=== PATIENT | female | born 1935 | race African-American/Black ===

== ENCOUNTER 2018-12-05 11:42 | Inpatient (IN) | payer OTHER ==
[~2018-12-05] VITALS: Ht 149.9 cm; Wt 103.4 kg
[2018-12-05 11:46] VITALS: BP 174/79
[2018-12-05] MEDS ORDERED: SENEXON-S TABL1 EACH PO (12:00)
[2018-12-05] MEDS ORDERED: ADULT WAL-100 MG/5 M PO (12:00)
[2018-12-05] MEDS ORDERED: BACTRIM DS TAB1 EACH PO (12:00)
[2018-12-05] MEDS ORDERED: NYAMYC15 GM TOP (12:01)
[2018-12-05] MEDS ORDERED: LOPERAMIDE 2 MG2 M1 PO (12:01)
[2018-12-05] MEDS ORDERED: ONDANSETRON HCL4 M2 PO (12:01)
[2018-12-05] MEDS ORDERED: AMLODIPINE BESY10 MG PO (12:01)
[2018-12-05] MEDS ORDERED: LOPRESSOR50 PO (12:02)
[2018-12-05] MEDS ORDERED: MIRALAX17 GM PO (12:02)
[2018-12-05] MEDS ORDERED: LEXAPRO 10 MG T10 M2 PO (12:02)
[2018-12-05] MEDS ORDERED: MAXZIDE-25 MG1 EACH PO (12:03)
[2018-12-05] MEDS ORDERED: FEOSOL325 M1 PO (12:03)
[2018-12-05] MEDS ORDERED: POTASSIUM20 PO (12:03)
[2018-12-05] MEDS ORDERED: XARELTO15 MG PO (12:04)
[2018-12-05] MEDS ORDERED: VITAMIN D1000 UNI1 PO (12:04)
[2018-12-05] MEDS ORDERED: ARTIFICIAL TEA1 EACH OPHTHALMIC (12:04)
[2018-12-05] MEDS ORDERED: CAL-GEST200 MG PO (12:05)
[2018-12-05] MEDS ORDERED: GABAPENTIN 100100 MG PO (12:05)
[2018-12-05] MEDS ORDERED: APAP650 PO (12:06)
[2018-12-05 12:11] LABS: URINE BILIRUBIN NEGATIVE (Negative); URINE BLOOD TRACE (Negative); URINE CLARITY CLEAR; URINE COLOR YELLOW; URINE GLUCOSE-RANDOM* NEGATIVE (Negative); URINE KETONES TRACE (Negative); URINE LEUKOCYTES-REFLEX NEGATIVE (Negative); URINE NITRITE-REFLEX NEGATIVE (Negative); URINE PROTEIN (DIPSTICK) 1+ (Negative); URINE SPECIFIC GRAVITY 1.025 (1.005-1.035); URINE UROBILINOGEN 0.2 E.U./dl (0.2-1.0)
[2018-12-05 12:25] LABS: FINE GRANULAR CASTS 0-3 Few /LPF (None Seen); SQUAMOUS 4-10 Moderate /LPF (0-3)
[2018-12-05 12:26] LABS: BACTERIA-REFLEX 1-9 Few /HPF (None Seen); CRYSTALS None Seen /LPF (None Seen); URINE RBC 3-10 Few /HPF (0-2); URINE WBC-REFLEX 0-5 Rare /HPF (0-5)
[2018-12-05 12:30] LABS: ABSOLUTE NEUTROPHILS 5.3 thou/uL (1.4-8.2); BASOPHILS 0.5 % (0.0-2.0); EOSINOPHILS 3.2 % (0.0-3.0); HEMATOCRIT 39.5 % (37.0-47.0); HEMOGLOBIN 13.3 gm/dL (12.0-15.0); MCH 30.1 pg (26.0-34.0); MCHC 33.7 g/dL (28.0-37.0); MCV 89.3 fL (80.0-100.0); MONOCYTES 2.5 % (1.0-8.0); PLATELET COUNT 215 thou/uL (150-400); POLYS 89.8 % (36.0-66.0); RBC 4.42 mil/uL (4.20-5.00); RDW 15.1 % (10.5-14.5); WBC 5.9 thou/uL (4.0-11.0)
[2018-12-05 12:42] LABS: ALBUMIN 3.2 g/dL (3.4-5.0); CALCIUM 7.9 mg/dL (8.5-10.1); CREATININE 1.5 mg/dL (0.6-1.0); POTASSIUM 4.6 mmol/L (3.5-5.1); TOTAL BILIRUBIN 0.3 mg/dL (<0.1-1.0); TOTAL PROTEIN 7.2 g/dL (6.4-8.2)
--- NOTE | 2018-12-05 13:54 | EKG ---
[place] [address] [facility] [place] [address] ELECTROCARDIOGRAM REPORT Name: RACHEL GARCIA Room #: [facility] Mitchell#: [id number] ������������������ Admission: 12/05/18 ������������������ Attend Phys: Discharge: ������������������ Date of : 39 Report #: [id number] ����������������������������������������������������������������� [id number] THIS REPORT FOR: //name// [facility] ED Test Date: 2018-12-05 Test Time: 12:59:20 Pat Name: RACHEL GARCIA Department: Room: Gender: F Radiotelegrapher: ION : 1935 Requested By: Stephenie Elizondo Order Number: [id number] MD: Jaguar Silva Measurements Intervals [place] Rate: 72 P: 33 MS: 176 QRS: -7 QRSD: 103 T: 31 QT: 410 QTc: 449 Interpretive Statements Sinus rhythm Consider anterior infarct No previous ECG available for comparison Electronically Signed On 12-05-2018 13:54:39 CDT by Jaguar Silva [email or web address] ��������������������������������������������� <ELECTRONICALLY SIGNED> ���������������������������������������� By: Jaguar Silva MD ��������������������������������������������� 12/05/18 1354 [id number] Jaguar Silva MD /RL
[2018-12-05 14:29] VITALS: BP 168/74
[2018-12-05 15:19] VITALS: BP 168/74
[2018-12-05 15:55] VITALS: BP 152/71
--- NOTE | 2018-12-05 17:26 | NUR ---
TO UNIT FROM E.D. BY CART AT 1530. FALL PRECAUTIONS IN PLACE; CLOSE TO NURSES' STATION; HOURLY ROUNDING. NSR PER TELE. FREQUENT CHECKS, WILL CONTINUE TO MONITOR.
--- NOTE | 2018-12-05 19:27 | NUR ---
JASEN PEPE FROM [facility] CALLED FOR UPDATE ON PATIENT ADMISSION STATUS
[2018-12-05 20:00] VITALS: BP 113/76
[2018-12-05 20:16] LABS: CALCIUM 8.2 mg/dL (8.5-10.1); CREATININE 1.5 mg/dL (0.6-1.0); POTASSIUM 5.1 mmol/L (3.5-5.1)
[2018-12-06] VITALS: BP 154/72
[2018-12-06 03:22] LABS: ABSOLUTE NEUTROPHILS 4.7 thou/uL (1.4-8.2); BASOPHILS 0.9 % (0.0-2.0); EOSINOPHILS 0.7 % (0.0-3.0); HEMATOCRIT 38.1 % (37.0-47.0); HEMOGLOBIN 12.9 gm/dL (12.0-15.0); LYMPHOCYTES 6.7 % (24.0-44.0); MCH 29.9 pg (26.0-34.0); MCHC 33.7 g/dL (28.0-37.0); MCV 88.5 fL (80.0-100.0); PLATELET COUNT 207 thou/uL (150-400); POLYS 88.7 % (36.0-66.0); RBC 4.31 mil/uL (4.20-5.00); RDW 14.8 % (10.5-14.5); WBC 5.3 thou/uL (4.0-11.0)
[2018-12-06 03:27] LABS: CALCIUM 7.6 mg/dL (8.5-10.1); CREATININE 1.4 mg/dL (0.6-1.0); POTASSIUM 4.3 mmol/L (3.5-5.1)
[2018-12-06 04:00] VITALS: BP 148/76
--- NOTE | 2018-12-06 05:21 | NUR ---
ASSUMED PT CARE AT 1900 WITH NO SIGN OF DISTRESS NOTED IN PT, BUT IS ALERT BUT CONFUSED. NO FAMILY AT BEDSIDE. ATTENDING PHYSICIAN NOTIFIED ON ORDER'S FOR PATIENT. FLUID RESUMED. ASSESSMENT COMPLETED AND CHARTED. PT IS STABLE. SCHEDULED MEDS ADMINISTERED TO PT. NO FURTHER NEEDS AT THIS TIME.
[2018-12-06 07:41] LABS: CALCIUM 7.8 mg/dL (8.5-10.1); CREATININE 1.2 mg/dL (0.6-1.0); POTASSIUM 4.4 mmol/L (3.5-5.1)
[2018-12-06 07:46] VITALS: BP 146/92
--- NOTE | 2018-12-06 09:49 | NUR ---
CONSULTED TO PLACE A MIDLINE FOR A PATIENT NEEDING ACCESS, STAFF UNABLE TO OBTAIN PIV. ORDER NOTED AND VERBAL CONSENT FROM THE PATIENT OBTAINED AFTER THE PROCEDURE WELL RISKS AND BENIFITS WERE DISCUSSED WITH THE PATIENT. THE RIGHT UPPER ARM CEPHALIC WAS WIDLEY PATENT. A #4F POWER MIDLINE WAS PLACED PER HOSPITAL POLICY. LINE WAS TRIMMED TO 12CM AND ADVANCED WITHOUT DIFFICULTY. LINE SECURED AND RELEASED FOR USE
[2018-12-06 12:37] VITALS: BP 134/69
[2018-12-06 15:44] VITALS: BP 123/67
[2018-12-06 20:00] VITALS: BP 121/71
--- NOTE | 2018-12-06 20:29 | NUR ---
ASSUMED CARE AT SHIFT, ALERT TO SELF AND FAMILY. SR ON THE MONITOR AND VSS.DR ROBERTO NOTIFIED ABOUT SODIUM CRITICAL LEVEL. PATIENT FAMILY UPDATED. Q2 POSITIONED AND NEEDED FOR COMFORT. PATIENT ON FLUID RESTRICTION. AND WILL CONTINUE WITH POC.
--- NOTE | 2018-12-07 03:40 | NUR ---
patient is aox1 confused and forgetful. patient seems to be answering to internal stimuli. patient needs total assistance with adl, bed mobility, tansfer and toileting. patient incontient this shift pericare and barrier cream applied as needed. patient had greenish loose bowel movement this shift x2. turned q 2 hours. patient was awake most of the time this shift. patient in bed asleep at this time breathing regular and unlaboured.
[2018-12-07 04:00] VITALS: BP 120/90
[2018-12-07 05:14] LABS: ABSOLUTE NEUTROPHILS 4.4 thou/uL (1.4-8.2); BASOPHILS 0.3 % (0.0-2.0); EOSINOPHILS 1.8 % (0.0-3.0); HEMATOCRIT 34.8 % (37.0-47.0); HEMOGLOBIN 11.8 gm/dL (12.0-15.0); LYMPHOCYTES 10.4 % (24.0-44.0); MCH 29.9 pg (26.0-34.0); MCHC 33.9 g/dL (28.0-37.0); MCV 88.3 fL (80.0-100.0); MONOCYTES 6.9 % (1.0-8.0); PLATELET COUNT 192 thou/uL (150-400); POLYS 80.6 % (36.0-66.0); RBC 3.94 mil/uL (4.20-5.00); RDW 15.1 % (10.5-14.5); WBC 5.5 thou/uL (4.0-11.0)
[2018-12-07 05:32] LABS: CALCIUM 7.1 mg/dL (8.5-10.1); POTASSIUM 4.3 mmol/L (3.5-5.1)
[2018-12-07 08:41] VITALS: BP 141/109
--- NOTE | 2018-12-07 09:57 | NUR ---
INTSTRUCTED BY DR. RIOJAS THAT IT IS OK TO GIVE HYPERTONIC SOLUTION THROUGH MIDLINE ACCESS.
--- NOTE | 2018-12-07 10:48 | HC ---
[facility] [place] [address] CONSULTATION Name: RACHEL GARCIA Room #: 204-P ADM IN M.R.#: [id number] Admission: 12/05/18 ������������������ Attend Phys: Zulay Shepard MD Discharge: ������������������ Date of : 37 Report #: [id number] THIS REPORT FOR: //name// CC: FAM unknown Zulay Shepard DATE OF SERVICE: 12/06/2018 REASON FOR CONSULTATION: Hyponatremia. HISTORY OF PRESENT ILLNESS: This is an 83-year-old female who lives in a [facility]. She apparently has some chronic dementia. Apparently, she had a low-grade fever yesterday and came to the Emergency Room. Upon her evaluation in the Emergency Room, she was found to be somewhat hyponatremic with serum sodium of 118. We are asked to see her for help with the hyponatremia. The patient is awake, but really not able to answer any meaningful questions. She is disoriented, consistent with a chronic dementia. She was put on some IV normal saline overnight in the Emergency Room and that was continued when she got admitted to the floor. By this morning, her serum sodium dropped to 116. We did have a random urine sodium of 77, random urine creatinine of 89.5 on admission. Urine osmolality is pending. Her urinalysis showed specific gravity of 1.025. PAST MEDICAL HISTORY: Obtained from her records include history of hypertension, type 2 diabetes, chronic dementia, mild anemia. Also, some paroxysmal atrial fibrillation. MEDICATIONS: Include amlodipine 10 mg daily, metoprolol 50 mg b.i.d., Lexapro 10 mg daily, Xarelto 15 mg daily, calcium 500 mg t.i.d., gabapentin 200 mg t.i.d., several p.r.n. medications. ALLERGIES: INCLUDE CANDESARTAN, CAPTOPRIL, HYDROCHLOROTHIAZIDE, NASONEX, PROPOXYPHENE, AND FELDENE. FAMILY HISTORY: Unavailable. SOCIAL HISTORY: The patient is single, lives in a local care center. She is disabled. Apparently, there is a granddaughter in [place] who is involved with her care. REVIEW OF SYSTEMS: Unavailable from the patient. PHYSICAL EXAMINATION: GENERAL: An 83-year-old female, awake, does respond. She is fully disoriented and confused, no apparent distress. VITAL SIGNS: Blood pressure 146/92, heart rate 86, temperature 97.5, oxygen [facility] [address] [place] [address] CONSULTATION Name: RACHEL GARCIA Room #: 204-P [facility] IN M.R.#: [id number] Admission: 12/05/18 ������������������ Attend Phys: Zulay Shepard MD Discharge: ������������������ Date of : 37 Report #: [id number] saturation 95%. She has had no fever since she got here even though the fever was the reporting chief complaint. HEENT: Shows pupils are equal and reactive. Sclerae nonicteric. Oral mucosa is moist. NECK: Neck veins are not distended. Supple, no adenopathy. CHEST: Clear bilaterally. HEART: Has a regular rate and rhythm. ABDOMEN: Has active bowel sounds, is nontender. EXTREMITIES: Shows no peripheral edema. Chest x-ray is reviewed and review some large lower lobe atelectasis. LABORATORY DATA: From admission, sodium 118, potassium 4.6, chloride 85, bicarbonate 20, BUN 17, creatinine 1.5, down to 1.2 today, glucose 216, AST 150, ALT 115, calcium 7.8, total protein 7.2, albumin 3.2. White count 5.9, hemoglobin 13.3, hematocrit 39.5, platelets 215,000. Urinalysis is as described above. ASSESSMENT: 1. Hyponatremia. This is in the face of the patient who was euvolemic. Blood pressure is good. She is not dry on exam. Fractional excretion of sodium is actually high. 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 This is further supported by the fact that she received IV normal saline overnight and the serum sodium actually dropped somewhat due to her inability to excrete the free water. At this point, I will stop the IV fluids. We will put her on a very mild fluid restriction. This should start to turn around fairly promptly. 2. History of hypertension. 3. Chronic dementia. PLAN: 1. As above. We will recheck labs in the morning. 2. We will follow along the care of this patient. ��������������������������������������������� <ELECTRONICALLY SIGNED> ���������������������������������������� By: Cayetano Sharma MD ��������������������������������������������� 12/07/18 1048 1139 0450 Cayetano Sharma MD /nt
[2018-12-07 10:58] VITALS: BP 119/76
[2018-12-07 15:04] VITALS: BP 114/66
--- NOTE | 2018-12-07 16:37 | NUR ---
PT NOT WAKING UP ENOUGH TO FEED AND SWALLOW. WHEN TECH TRIED TO FEED THIS AM PT WAS POCKETING FOOD IN CHEECK. WILL CHANGE DIET TO PUREED.
--- NOTE | 2018-12-07 17:39 | NUR ---
CONTACT PT'S DAUGHTER AND GRANDAUGHTER TO GIVE UPDATE. FAMILY UPDATED ON PT'S CONDITION.
[2018-12-07 20:10] VITALS: BP 129/54
[2018-12-08 04:55] VITALS: BP 127/54
[2018-12-08 06:44] LABS: CALCIUM 7.4 mg/dL (8.5-10.1); CREATININE 1.2 mg/dL (0.6-1.0); POTASSIUM 3.4 mmol/L (3.5-5.1)
--- NOTE | 2018-12-08 07:59 | NUR ---
ASSUMED PT CARE AT 1900 WITH NO SIGN OF DISTRESS NOTED IN PT. PT IS VERY LETHARGIC. ASSESSMENT COMPLETED. SCHEDULED MEDS ADMINISTERED TO PT NEEDED. VITAL SIGNS STABLE. NO FAMILY AT BEDSIDE. PT IS CONTINUED TO BE TURNED. CONTINUE TO MONITOR. DENIES ANY FURTHER NEEDS AT THIS TIME.
[2018-12-08 08:02] VITALS: BP 132/53
--- NOTE | 2018-12-08 10:27 | NUR ---
met with patient who has confusion. Sp with nursing at [facility]. Camilo resides on second floor of [facility]. She uses a power scooter at facility and uses a sit/stand lift chair. Plan return to [facility] once stable. Confirmed plan with dtr Sarah who lives in [place]. She plans to text her dtr Irina who is also contact for patient.
[2018-12-08 11:40] VITALS: BP 121/66
--- NOTE | 2018-12-08 13:16 | NUR ---
ASSUMED CARE THIS AM, PATIENT SLEEPING BUT OPENS EYES TO VOICE. STATES HER NAME BUT GETS HER BIRTHDAY YEAR WRONG. SPEECH SLURRED AND SHEIS DIFFICULT TO UNDERSTAND AT TIMES. FOLLOWS COMMANDS. NO COMPLAINTS OF PAIN, NAUSEA OR DISCOMFORT. SB ON MONITOR. SEMI-FOWLERS IN BED, WILL TURN Q2. INCONTINENT OF URINE AND STOOL, WILL MONITOR CLOSELY. SKIN INTACT
[2018-12-08 15:27] VITALS: BP 124/61
--- NOTE | 2018-12-08 15:54 | NUR ---
FAXED CLINICAL UPDATE TO [facility] SPOKE WITH STERLING ON 2N FLOOR SHE RECEIVED UPDATE. DCP TO FOLLOW.
[2018-12-08 20:05] VITALS: BP 120/54
--- NOTE | 2018-12-09 03:58 | NUR ---
ASSUMED PT CARE AT 1900. VSS. PT WAS SLEEPY BUT AROUSABLE AND ORIENTED TO HER SELF ONLY REMAINS CONFUSED. NO COMPLAINTS OF PAIN OR DISCOMFORT. PT SLEPT WELL FOR MOST OF THE NIGHT, FREQUENT TURNS DONE, BARIER CREAM APPLIED TO BOTTOM. 1200 FLUID RESTRICTION MAINTAINED FOR THE DAY. PT TOLERATES PILLS WELL. PT IS STABLE, WILL CONTINUE TO MONITOR PER POC
[2018-12-09 04:15] VITALS: BP 115/96
[2018-12-09 05:57] LABS: ALBUMIN 2.7 g/dL (3.4-5.0); CALCIUM 7.4 mg/dL (8.5-10.1); CREATININE 1.1 mg/dL (0.6-1.0); PHOSPHORUS 2.5 mg/dL (2.5-4.9); POTASSIUM 3.6 mmol/L (3.5-5.1)
--- NOTE | 2018-12-09 10:49 | NUR ---
Nutrition: pt admitted with hyponatremia, SIADH, AMS. On fluid restriction. Renal following. Na/K+ pills. Bites only at breakfast. Will trial ensure pudding. Diet changed to pureed on 12/07 by nsg due to decreased JOSE. More alert today per nsg however pt very lethargic during RD visit. No weight hx but current BMI 44, extreme class 3 obesity. From [facility]. REC order ST eval to determine most appropriate diet consistency. If upgrade possible, perhaps this may assist intake. Follow for po improvement/tolerance to supplement.
--- NOTE | 2018-12-09 10:56 | NUR ---
REC order ST eval now that pt is more alert to determine best diet consistency as po intake is poor. RD adding ensure pudding BID.
[2018-12-09 11:35] VITALS: BP 135/74
--- NOTE | 2018-12-09 14:06 | NUR ---
[facility] SW and transportation escort visiting with [address] [facility] [address] Kapoor rounded and alerted to [facility] possible dc in am. Updated [facility]
[2018-12-09 16:00] VITALS: BP 124/61
--- NOTE | 2018-12-09 18:22 | NUR ---
ASSUMED CARE, PATIENT SLEEPING, OPENS EYES BUT REMAINS DROWSY. 0RIENTED TO NAME AND BIRTHDAY. CONFUSION SOMEWHAT IMPROVED BUT SPEECH STILL GARBLED AND HARD TO UNDERSTAND AT TIMES. VSS. CONTINUES TO BE INCONTINENT OF STOOL AND URINE. SKIN INTACT BUT ANUS AND SURROUNDING AREA EXCORIATED. PROTECTIVE SKIN CREAM APPLIED. TURNED EVERY 2 HOURS AND HEELS FLOATED. SCDS AND JIE HOSE ON.
--- NOTE | 2018-12-09 18:26 | NUR ---
SPOKE WITH DAUGHTER MIKAEL ON THE PHONE WHO CALLS FROM [place]. CONCERNED ABOUT HER MOTHERS LIPS AND WANTED A PICTURE OF THEM SENT TO HER. I EXPLAINED THAT THAT WAS NOT SOMETHING THAT WE COULD DO. CONTACTED DR. ROBERTO'S OFFICE AND LEFT A MESSAGE FOR HIM TO CALL DAUGHTER WITH PATIENT UPDATE.
[2018-12-09 19:48] VITALS: BP 131/59; BP 143/55
[2018-12-10 03:59] LABS: ALBUMIN 2.7 g/dL (3.4-5.0); CALCIUM 7.8 mg/dL (8.5-10.1); PHOSPHORUS 1.9 mg/dL (2.5-4.9); POTASSIUM 3.9 mmol/L (3.5-5.1)
--- NOTE | 2018-12-10 04:15 | NUR ---
ASSUMED PT CARE AT 1900. VSS. PT AWAKE AND ORIENTED TO SELF. SPOKE TO PT'S DAUGHTER IN [place] LAST NIGHT, SHE WANTED TO KNOW HOW SHE WAS DOING AND ENSURE THAT PT WAS BEING GROOMED. SHE ALSO SAID SHE WOULD LIKE TO SEE A PICTURE OF HER MOM TO WHICH I INFORMED HER IS A HIPPA VIOLATION. PT'S SODIUM LEVELS ARE BETTER THIS AM AT 133. POTASSIUM AND CR ARE WNL WITH BUN BEING SLIGHLY ELEVATED. PT IS STABLE, TOLERATED HER THICKENED LIQUID WITH HER MEDS LAST NIGHT. NO COMPLAINTS OF PAIN OR DISTRESS. FREQUENT TURNS BEING DONE WITH BARRIER CREAM APPLIED TO BOTTOM. PT MAY RETURN TO PRISON TODAY IF DEEMED FIT.
[2018-12-10 04:16] LABS: HEMATOCRIT 33.2 % (37.0-47.0); HEMOGLOBIN 11.2 gm/dL (12.0-15.0); MCHC 33.8 g/dL (28.0-37.0); MCV 88.8 fL (80.0-100.0); RBC 3.74 mil/uL (4.20-5.00); RDW 15.5 % (10.5-14.5); WBC 12.7 thou/uL (4.0-11.0)
[2018-12-10 04:45] VITALS: BP 123/60
[2018-12-10 08:49] VITALS: BP 141/37
[2018-12-10 11:23] LABS: URINE BILIRUBIN NEGATIVE (Negative); URINE BLOOD NEGATIVE (Negative); URINE CLARITY CLEAR; URINE COLOR YELLOW; URINE GLUCOSE-RANDOM* NEGATIVE (Negative); URINE KETONES 1+ (Negative); URINE LEUKOCYTES-REFLEX TRACE (Negative); URINE NITRITE-REFLEX NEGATIVE (Negative); URINE PROTEIN (DIPSTICK) 1+ (Negative); URINE UROBILINOGEN 0.2 E.U./dl (0.2-1.0)
[2018-12-10 11:32] LABS: SQUAMOUS 0-3 Few /LPF (0-3)
[2018-12-10 11:33] LABS: BACTERIA-REFLEX 1-9 Few /HPF (None Seen); CASTS None Seen /LPF (None Seen); CRYSTALS None Seen /LPF (None Seen); URINE RBC None Seen /HPF (0-2); URINE WBC-REFLEX 6-15 Few /HPF (0-5)
[2018-12-10 12:02] LABS: ALBUMIN 2.8 g/dL (3.4-5.0); DIRECT BILIRUBIN 0.1 mg/dL (<0.1-0.3); TOTAL BILIRUBIN 0.3 mg/dL (<0.1-1.0); TOTAL PROTEIN 6.5 g/dL (6.4-8.2)
[2018-12-10 12:19] VITALS: BP 141/65
[2018-12-10 13:56] LABS: BE(vivo) -6.4 mmol/L (-2 to +3); HCO3 17.8 mmol/L (22.0-26.0); PCO2 31.2 mmHg (35.0-45.0); PO2 56.8 mmHg (80.0-100.0); pH 7.374 (7.360-7.450); sO2 89.3 % (92.0-98.0)
[2018-12-10 15:35] VITALS: BP 138/68
--- NOTE | 2018-12-10 16:04 | NUR ---
[facility] updated yesterday cont plan for [facility] once stable.
--- NOTE | 2018-12-10 19:42 | NUR ---
ASSUMED CARE THIS AM, SLEEPING BUT AWAKES TO NAME. ORIENT TO SELF, CONFUSED AND INAPPROPRIATE SPEECH, GARBLED AND HARD TO UNDERSTAND. SR ON MONITOR. INCONTINENT OF STOOL AND URINE. MOVES ALL EXTREMITIES AND FOLLOWS COMMANDS. DEPENDENT OF ALL ADL'S. SPEECH FOLLOWING FOR SWALLOW EVALUATION. CURRENTLY ON PUREED WITH NECTAR THICK LIQUIDS. PLAN FOR MRI IN AM
[2018-12-10 20:12] VITALS: BP 122/71
--- NOTE | 2018-12-11 03:48 | NUR ---
ASSESSMENT DOCUMENTED.PT BEEN RESTING IN NO ACUTE DISTRESS.A/OX1(SELF).PT WAS AWAKE AT THE BEGINNING OF THE SHIFT.FOLLOWS COMMANDS WHILE PROMPTED THOUGH FORGETS EASLIY.REPOSITIONED IN BED.PERICARE GIVEN WITH EACH INCONTINENCE EPISODE.VSS.SINUS RHYTHM ON MONITOR.PT POCKETING FOOD IN THE MOUTH.ORAL GIVEN GIVEN.NO S/SX OF PAIN NOTED.PT WAS GIVEN O2 AT 2LITERS D/T HER CO2 BEING HIGH BUT WONT KEEP IT ON.POC IS TO AHVE MRI TODAY.WILL CONT TO MONITOR PER POC.
[2018-12-11 04:28] LABS: HEMATOCRIT 33.8 % (37.0-47.0); HEMOGLOBIN 11.3 gm/dL (12.0-15.0); MCH 29.5 pg (26.0-34.0); MCHC 33.4 g/dL (28.0-37.0); MCV 88.4 fL (80.0-100.0); RBC 3.83 mil/uL (4.20-5.00)
[2018-12-11 04:43] LABS: ALBUMIN 2.7 g/dL (3.4-5.0); CALCIUM 7.9 mg/dL (8.5-10.1); CREATININE 0.8 mg/dL (0.6-1.0); PHOSPHORUS 2.2 mg/dL (2.5-4.9); POTASSIUM 3.9 mmol/L (3.5-5.1); TOTAL BILIRUBIN 0.3 mg/dL (<0.1-1.0); TOTAL PROTEIN 6.3 g/dL (6.4-8.2)
[2018-12-11 04:45] VITALS: BP 128/73
[2018-12-11 07:40] VITALS: BP 141/73
[2018-12-11 11:20] VITALS: BP 142/66
[2018-12-11 15:45] VITALS: BP 130/65
[2018-12-11 20:00] VITALS: BP 150/75; BP 150/95
[2018-12-12 04:00] VITALS: BP 157/88
--- NOTE | 2018-12-12 05:32 | NUR ---
ASSUMED PT CARE AT 1900 WITH NO SIGN OF DISTRESS NOTED IN PT. PT IS ALERT BUT CONFUSED. NO FAMILY AT BEDSIDE. SCHEDULED MEDS ADMINISTERED TO PT, PT TOLERATED PO INTAKE. TURNS NOTED. DENIES ANY FURTHER NEEDS AT THIS TIME.
[2018-12-12 05:57] LABS: ALBUMIN 2.8 g/dL (3.4-5.0); HEMATOCRIT 33.7 % (37.0-47.0); HEMOGLOBIN 11.3 gm/dL (12.0-15.0); MCH 29.6 pg (26.0-34.0); MCHC 33.5 g/dL (28.0-37.0); MCV 88.3 fL (80.0-100.0); PHOSPHORUS 2.6 mg/dL (2.5-4.9); RBC 3.82 mil/uL (4.20-5.00); RDW 15.9 % (10.5-14.5); WBC 15.1 thou/uL (4.0-11.0)
[2018-12-12 07:45] VITALS: BP 153/68
[2018-12-12 11:40] VITALS: BP 143/68
--- NOTE | 2018-12-12 13:16 | NUR ---
NEW NEUROLOGY CONSULT AND ID. NO PLAN FOR WEEKEND DC. LEFT MESSAGE ON DTRS CELL AND SP WITH GRANDDTR GRETCHEN TO UPDATE OF NO DC THIS WEEKEND. [facility] FOLLOWING.
--- NOTE | 2018-12-12 14:17 | NUR ---
ASSUMED CARE OF PT AT APPROX 0700. PT IS ALERT AND CONFUSED. PT ABLE TO EXPRESS WELL AT TIMES AND OTHER PT WILL ONLY MUMBLE. MONITORED ON TELE AND ABLE TO MAINTAIN 02 SAT >90 ON RA. PT IS BREATHING LOUD THROUGH MOUTH, BUT DOES NOT SEEM LABORED AND 02 SAT MAINTAINS ABOVE 90. DENIES PAIN. ASSESSMENT CAHRTED. PT NOT EATING WELL AND POCKETS FOOD WHEN FEEDING. PT PULLED MIDLINE OUT. IV TEAM NOTIFIED. SPOKE WITH PT DAUGHTER AND UPDATED ON POC. DAUGHTER DENIES FURTHER QUESTIONS OR CONCERNS AT THIS TIME. PT TURNED TO MAINTAIN SKIN INTEGRITY. BED BATH GIVEN WITH AID. PT REMAINS ON IV ANTIBIOTICS. WILL CONTINUE TO MONITOR.
[2018-12-12 15:30] VITALS: BP 140/80
--- NOTE | 2018-12-12 17:30 | NUR ---
VASCULAR ACCESS CALLED TO REPLACE MIDLINE THAT PT PULLED OUT THIS AFTERNOON. PT WAS PREPPED AND DRAPED FOR MAX BARRIER 4FR POWER MIDLINE TRIMMED TO 12CM INSERTED IN WISAM CEPHALIC. WISAM CEPHALIC WAS WIDELY PATENT WITH USG,1% LIDOCAINE GIVEN SQ. ML SECURED RELEASED FOR IMMEDIATE USE PER PROTOCOL TO BOBBY AGGARWAL
[2018-12-12 20:00] VITALS: BP 146/82
[2018-12-13 04:00] VITALS: BP 162/69
--- NOTE | 2018-12-13 05:42 | NUR ---
ASSUMED PT CARE AT 1900 WITH NO SIGN OF DISTRESS NOTED IN PT. PT IS ALERT BUT CONFUSED, NO FAMILY AT BEDSIDE. SCHEDULED MEDS ADMINISTERED. VITAL SIGNS STABLE. PT IS BEDREST. MEDS CRUSHED AND ADMINISTERED TO PT. NO FURTHER NEEDS AT THIS TIME.
[2018-12-13 06:26] LABS: HEMATOCRIT 34.8 % (37.0-47.0); HEMOGLOBIN 11.7 gm/dL (12.0-15.0); MCH 29.9 pg (26.0-34.0); MCHC 33.7 g/dL (28.0-37.0); PLATELET COUNT 477 thou/uL (150-400); RBC 3.92 mil/uL (4.20-5.00); RDW 16.3 % (10.5-14.5)
[2018-12-13 06:37] LABS: ALBUMIN 2.8 g/dL (3.4-5.0); CALCIUM 8.2 mg/dL (8.5-10.1); TOTAL BILIRUBIN 0.4 mg/dL (<0.1-1.0); TOTAL PROTEIN 6.8 g/dL (6.4-8.2)
[2018-12-13 07:23] LABS: ABSOLUTE NEUTROPHILS 9.4 thou/uL (1.4-8.2); ATYPICAL LYMPHS 1 %
[2018-12-13 07:24] LABS: ANISOCYTOSIS SLIGHT; PLATELET ESTIMATE INCREASED; POIKILOCYTOSIS SLIGHT; POLYCHROMASIA 1+
[2018-12-13 08:00] VITALS: BP 150/65
[2018-12-13 11:19] LABS: BE(vivo) -2.6 mmol/L (-2 to +3); HCO3 20.9 mmol/L (22.0-26.0); PCO2 32.1 mmHg (35.0-45.0); pH 7.431 (7.360-7.450); sO2 86.5 % (92.0-98.0)
[2018-12-13 11:24] LABS: PO2 49.3 mmHg (80.0-100.0)
[2018-12-13 12:00] VITALS: BP 148/69
--- NOTE | 2018-12-13 13:34 | NUR ---
PT VERY LETHARGIC AND CONFUSED THIS MORNING, UNABLE TO ANSWER ANY QUESTIONS JUST MUMBLING. CRITICAL P02 OF 49.3 FROM BLOOD GAS. PT PLACED ON NRB AND BREATHING TREATMENTS ORDERED AND RECEIVED. PT VSS, SR ON TELE. PT TOLERATES MEDS, BUT HAS POOR APPETITE. WILL CONTINUE TO MONITOR.
[2018-12-13 16:00] VITALS: BP 139/67
[2018-12-13 19:49] VITALS: BP 125/62
[2018-12-14 04:25] VITALS: BP 127/65
[2018-12-14 07:52] VITALS: BP 115/53
--- NOTE | 2018-12-14 11:17 | NUR ---
ASSUMED CARE OF PT APPROX 0715, SHE'S ALERT TO SELF, BDATE, NOT LOCATION/YEAR, MUMBLES YET WILL INTERMITTENTLY SPEAK CLEARLY, BRIEFLY, TO MAKE HER NEEDS KNOWN. INCONTINENT OF BOTH B/B, NO SKIN ISSUES CURRENTLY OTHER THAN ITCHING WHERE ELECTRODES WERE ON HER BACK, REPLACED THEM TO THE FRONT, WRAPPED IV REPORT OF REMOVING A PICC LINE THIS ADMISSION. SPOKE WITH DAUGHTER, LEMUEL, WHO WAS UPSET THAT NO PHYSICIAN HAD REACHED OUT TO HER, WILL CALL WITH HER REQUEST AND PHONE NUMBER. BM TODAY, AND REPEAT GENTLE INSTRUCTION ON HOW TO USE CALL LIGHT FOR NEEDS. BED ALARM ENGAGED. TAKES MEDS CRUSHED, SUCCESSFULLY. STRONG LOCAL AREA NETWORK ADMINISTRATOR YET HAS TENDENCY NOT TO USE HER LEFT ARM. ASKED FOR HER COFFEE AND BROUGHT HER ARM UP AND SHE USED IT. WILL CONTINUE TO MONITOR
[2018-12-14 11:40] VITALS: BP 96/53
[2018-12-14 15:35] VITALS: BP 145/69
[2018-12-14 19:43] VITALS: BP 114/51
[2018-12-15 04:50] VITALS: BP 108/55
--- NOTE | 2018-12-15 05:25 | NUR ---
ASSUMED PT'S CARE AT 1900; PT. ON BED; WATCHING TV; AWAKE; ALERT; ORIENTED TO PERSON; DURING ASSESSMENT PT. ABLE TO START CONVERSATION; DECREASE SLURRED SPEACH; CONFUSED; ST. "ARE THEY IN [place]?"; REORIENTATED; ST. UNDERSTANDING; INCONTINENT; CHANGED NEEDED; TURNED FROM SIDE TO SIDE; C/O HIP & KNEE PAIN AT MIDNIGHT; PRN PAIN MEDICATION GIVEN; BLEEDING FROM MOUTH NOTICED; SKIN TEAR OVER TONGUE; MOUTH CARE GIVEN; HAD ONE BM EARLY ON THE MORNING; COMPLETE BED CHANGED; ABLE TO REST THROUGH THE NIGHT; 2L O2 APPLIED DUE TO STOP BREATHING WHILE SLEEPING; ASSESSMENT CHARGED; FOLLOWING POC; MONITORING; WILL PASS ON REPORT;
[2018-12-15 05:50] LABS: ALBUMIN 2.3 g/dL (3.4-5.0); CALCIUM 8.4 mg/dL (8.5-10.1); PHOSPHORUS 3.4 mg/dL (2.5-4.9); POTASSIUM 3.8 mmol/L (3.5-5.1)
[2018-12-15 07:50] VITALS: BP 105/60
[2018-12-15 10:50] LABS: HEMATOCRIT 36.3 % (37.0-47.0); HEMOGLOBIN 11.7 gm/dL (12.0-15.0); MCH 29.2 pg (26.0-34.0); MCHC 32.2 g/dL (28.0-37.0); MCV 90.7 fL (80.0-100.0); RDW 16.9 % (10.5-14.5); WBC 20.2 thou/uL (4.0-11.0)
[2018-12-15 11:40] VITALS: BP 95/56
--- NOTE | 2018-12-15 15:34 | NUR ---
FAXED CLINICAL UPDATE TO OP LEFT MSG WITH NITHIN IN ADM OF UPDATE FAXED. DCP TO FOLLOW.
[2018-12-15 16:10] VITALS: BP 93/45
--- NOTE | 2018-12-15 17:23 | NUR ---
ASSESSMENT DOCUMENTED. PT ALERT AND ORIENTED TO SELF AND PLACE WITH FORGETFULNESS. HAD TWO LOOSE STOOL THIS SHIFT. DR. CARTER NOTIFIED. ORDERS NOTED. DAUGHTER UPDATED ON PT PROGRESS. PT PROGRESSING WELL TOWARD DISCHARGE GOAL. WILL CONTINUE TO MONITOR.
--- NOTE | 2018-12-15 17:27 | HC ---
[facility] [place] [address] CONSULTATION Name: RACHEL GARCIA Room #: 204-P ADM IN M.R.#: [id number] Admission: 12/05/18 ������������������ Attend Phys: Zulay Shepard MD Discharge: ������������������ Date of : 37 Report #: [id number] THIS REPORT FOR: //name// CC: FAM unknown Zulay Shepard DATE OF SERVICE: 12/12/2018 INFECTIOUS DISEASES CONSULTATION REASON FOR CONSULTATION: I was asked to evaluate concerning leukocytosis and altered mental status. HISTORY OF PRESENT ILLNESS: The patient is an 83-year-old with underlying history of dementia, obesity, hypertension, diabetes, who was hospitalized on 12/05/2018 with hyponatremia and confusion after she was treated for urinary tract infection with Bactrim. It was also noted she developed rash and some mucositis to her lips. She had sodium down to 118. She had evidence of hepatitis. Mental status improved some as her sodium was corrected. Now it seems worse with ongoing confusion. Taking off her gown and pulling her IV out. Initially, her white count was normal. In the last 3 days, it is increased now up to 15,000. There has been no fever, chills, or sweats. She reports no pain. There has been minimal cough. No increased oxygen requirement. She has had some liquid stools initially, but those have slowed down. No dysuria. Seems to be emptying her bladder well. No rashes or decubiti. No increased adenopathy. No bleeding disorder issues. No other allergic reactions. No history of depression and no symptoms of such. She is nonambulatory. REVIEW OF SYSTEMS: A 10-point review of systems is negative other than what is described above. PAST MEDICAL HISTORY: Anxiety, dementia, hypertension, hyperlipidemia, peripheral neuropathy, diabetes, anemia, gastroesophageal reflux, hypokalemia, atrial fibrillation, anticoagulation, recent urinary tract infection. ALLERGIES: CANDESARTAN, CAPTOPRIL, HYDROCHLOROTHIAZIDE, NASONEX, CODEINE, FELDENE, PROPOXYPHENE. MEDICATIONS: As noted on her SEP, which were reviewed noting no corticosteroids. She was started on Zosyn yesterday. She is on gabapentin. FAMILY HISTORY: Noncontributory. SOCIAL HISTORY: long term resident, nonsmoker, no significant alcohol intake. [address] [address] CONSULTATION Name: RACHEL GARCIA Room #: 204-P [facility] IN M.R.#: [id number] Admission: 12/05/18 ������������������ Attend Phys: Zulay Shepard MD Discharge: ������������������ Date of : 37 Report #: [id number] REVIEW OF SYSTEMS: As noted above. PHYSICAL EXAMINATION: VITAL SIGNS: She is afebrile, hemodynamically stable. GENERAL: She was alert and cooperative, morbidly obese. SKIN: Without rash or decubitus. She had some mucositis involving her lips. No adenopathy palpable. HEENT: Eyes without scleral icterus. NECK: Supple with no thyromegaly or mass. CHEST: Few crackles in the left base posteriorly without consolidation. HEART: Regular without murmur, gallop, or rub. ABDOMEN: Obese, soft, nontender, no hepatosplenomegaly or mass appreciated. GENITOURINARY: External genitalia without mass or lesion. RECTAL: Not performed. EXTREMITIES: With no clubbing, cyanosis, or edema. Pulses were palpable in her feet. Cranial nerves intact. Strength in upper and lower extremities was symmetric and normal. Sensation appeared intact. LABORATORY DATA: Sodium 141, potassium 4, bicarbonate 21, creatinine 1, AST 26, ALT 95, alkaline phosphatase 54. Hemoglobin 11.3, white count 15.1, platelet count 451,000. Urinalysis unremarkable. Blood cultures are negative. Urine cultures are negative. Chest x-ray, left lower lobe atelectasis and infiltrate. 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 IMPRESSION: An 83-year-old with underlying history of dementia, now with delirium seems most likely small vessel ischemic or toxic metabolic in etiology. I doubt primary STATIONARY STEAM ENGINEER infection considering the onset. She does have a leukocytosis. Consideration of infectious sources would include aspiration pneumonitis or intra-abdominal infection. 1. Syndrome of inappropriate antidiuretic hormone, now corrected. 2. Aspiration risk with left lower lobe changes. 3. Mucositis and hepatitis. I suspect most likely related to her drug of Bactrim and it seems to be improving. 4. Loose stools yet to be identified as the source. RECOMMENDATION: Since she just got started on Zosyn, I would recommend continuing this for now. Aspiration precautions. Check CT scan of abdomen and pelvis and if she starts having diarrhea, we will check her stools. Serial CBC and chest x-ray. If any worsening in her condition, LP would be reasonable, but given that she is anticoagulated, would need to stop this and reassess. ��������������������������������������������� <ELECTRONICALLY SIGNED> ���������������������������������������� By: Randy Uriostegui MD ��������������������������������������������� 12/15/18 1727 [id number] Randy Uriostegui MD /nt
[2018-12-15 20:01] VITALS: BP 105/58
[2018-12-16] VITALS (10 sets, daily range): BP systolic 69–130; BP diastolic 43–87
--- NOTE | 2018-12-16 02:47 | NUR ---
ASSUMED PT CARE AT 1900. PT ORIENTED TO SELF, CONFUSED AND FORGETFUL. VITAL SIGNS STABLE, ASSESSMENT CHARTED. NO COMPLAINTS OF PAIN. PT COMPLAINED OF SOME GENERALIZED ITCHING. UPON CHECKING PT'S SKIN, WIDESPREAD RASH/HIVE WAS BEGINNING TO DEVELOPE. PHYSICIAN CONTACTED AND ORDER FOR BENADRYL WAS ORDERED AND GIVEN WHICH SEEMED TO HELP. NO FURTHER COMPLAINTS OF ITCHINESS. PT ON 2L OF O2 AT HR SLEEP. PT OCCASSIONALLY RUNS EXTREME TACHY ON THE MONITOR BUT UNSUSTAINED. PT OTHERWISE RESTED WELL THROUGH THE NIGHT. [id number] COMPLETED. PROGRESSING TOWARD PLAN OF CARE. WILL CONTINUE TO MONITOR.
[2018-12-16 04:24] LABS: HEMATOCRIT 34.8 % (37.0-47.0); HEMOGLOBIN 11.2 gm/dL (12.0-15.0); MCH 29.1 pg (26.0-34.0); MCHC 32.1 g/dL (28.0-37.0); MCV 90.7 fL (80.0-100.0); PLATELET COUNT 401 thou/uL (150-400); RBC 3.84 mil/uL (4.20-5.00); RDW 16.7 % (10.5-14.5); WBC 22.8 thou/uL (4.0-11.0)
[2018-12-16 04:39] LABS: ALBUMIN 2.2 g/dL (3.4-5.0); CALCIUM 8.4 mg/dL (8.5-10.1); CREATININE 2.9 mg/dL (0.6-1.0); PHOSPHORUS 4.3 mg/dL (2.5-4.9); POTASSIUM 3.7 mmol/L (3.5-5.1)
[2018-12-16 05:42] LABS: ABSOLUTE NEUTROPHILS 15.5 thou/uL (1.4-8.2); ANISOCYTOSIS 1+
--- NOTE | 2018-12-16 09:05 | NUR ---
ASSUMED CARE OF PT APPROX 0715, SHE IS ALERT TO SELF/BDATE/DAUGHTER'S NAMES INCL OF ONE TWO YEARS PRIOR, PER HER STATEMENT. ONE'S NAME IS MIKAEL HDEZ. HER HAND GENERAL ASSEMBLER IS STRONG YET SHE'S TENATIVE TO USE THEM FOR HER CARES THAT ARE IN HER SCOPE. WITH GENTLE FREQ ENCOURAGEMENT SHE CAN HIT CALL BUTTON AND REACH FOR ITEMS ON HER TABLE. CHANGING POSITIONS FREQUENTLY D/T BEDRIDDEN POSITION, MAX 2 ASSIST, INCONTINENT, MORE BARRIER CREAM BROUGHT IN, ENCOURAGED PT TO USE CALL LIGHT FOR ANY NEEDS. IS THIRSTY, RE-STARTED IVF THAT WERE OFF, PER ORDERS. WILL CONTINUE TO MONITOR
[2018-12-16 10:00] LABS: ALBUMIN 2.3 g/dL (3.4-5.0); DIRECT BILIRUBIN 0.1 mg/dL (<0.1-0.3); TOTAL BILIRUBIN 0.3 mg/dL (<0.1-1.0); TOTAL PROTEIN 6.3 g/dL (6.4-8.2)
--- NOTE | 2018-12-16 13:49 | NUR ---
Nutrition: Pt seen per followup. Admit with hyponatremia, SIADH, AMS. No longer on fluid restriction. Continues on pureed diet with nectar thick liquids per ST. Hopeful for upgrade soon. PO intake has been poor/fair but is reportedly improving. Receives Ensure pudding on trays and states she always eats it. + Diarrhea, C diff negative. Appears much less confused than last visit. No weight taken since 12/07, request new weight. No wasting present. BMI 44, extreme class 3 obesity. Unable to provide food preferences. Low risk with interventions in place.
[2018-12-16 14:35] LABS: URINE BILIRUBIN NEGATIVE (Negative); URINE BLOOD NEGATIVE (Negative); URINE CLARITY SL CLOUDY; URINE COLOR YELLOW; URINE GLUCOSE-RANDOM* NEGATIVE (Negative); URINE KETONES 1+ (Negative); URINE LEUKOCYTES-REFLEX NEGATIVE (Negative); URINE NITRITE-REFLEX NEGATIVE (Negative); URINE PROTEIN (DIPSTICK) 1+ (Negative); URINE SPECIFIC GRAVITY 1.025 (1.005-1.035); URINE UROBILINOGEN 0.2 E.U./dl (0.2-1.0)
[2018-12-16 14:43] LABS: AMORPHOUS URATES Moderate /LPF (None Seen); CASTS None Seen /LPF (None Seen); SQUAMOUS 0-3 Few /LPF (0-3)
[2018-12-16 14:44] LABS: BACTERIA-REFLEX 1-9 Few /HPF (None Seen); URINE RBC 0-2 Rare /HPF (0-2); URINE WBC-REFLEX 0-5 Rare /HPF (0-5)
--- NOTE | 2018-12-16 15:45 | 2DMMODE ---
[facility] [address] [place] [address] 2 D/M-MODE ECHOCARDIOGRAM Name: RACHEL GARCIA Room #: 204-P ADM IN .R.#: [id number] ������������� Admission: 12/05/18 ������������� Attend Phys: Valentina Sharif Discharge: ��� ������������� ��� Date of : 39 Date of Service: 12/16/18 1545 �� Report #: [id number] �������� ��������������������������������������������[id number] THIS REPORT FOR: //name// APPROVED REPORT Study performed: 12/16/2018 14:52:45 EXAM: Comprehensive 2D, Doppler, and color-flow Echocardiogram Patient Location: Bedside Status: routine BSA: 1.91 HR: 130 bpm BP: 101/66 mmHg Rhythm: Atrial Fibrillation Other Information Study Quality: Adequate Technically limited study due to limited mobility, morbid obesity. Indications Atrial Fibrillation 2D Dimensions RVDd: 33.94 mm IVSd: 13.01 (7-11mm) LVOT Diam: 19.17 (18-24mm) LVDd: 36.76 mm PWd: 13.64 (7-11mm) Ascending Ao: 27.62 (22-36mm) LVDs: 25.12 (25-40mm) Aortic Root: 29.90 mm Volumes Left Atrial Volume (Systole) Single Plane 4CH: 77.66 mL Single Plane 2CH: 82.77 mL LA ESV Index: 46.00 mL/m2 Aortic Valve AoV Peak Colby.: 1.28 m/s AO Peak Gr.: 7.95 mmHg LVOT Max P.19 mmHg LVOT Max V: 0.73 m/s ANGIE Vmax: 1.65 cm2 Mitral Valve MV Decel. Time: 164.02 ms [facility] [address] [place] [address] 2 D/M-MODE ECHOCARDIOGRAM Name: RACHEL GARCIA Room #: 204-P ADM IN [facility].#: [id number] ������������� Admission: 12/05/18 ������������� Attend Phys: Valentina Sharif Discharge: ��� ������������� ��� Date of : 39 Date of Service: 12/16/18 1545 �� Report #: [id number] �������� ��������������������������������������������[id number] MV E Max Colby.: 0.98 m/s Pulmonary Valve PV Peak Colby.: 0.86 m/s PV Peak Gr.: 2.99 mmHg Tricuspid Valve TR Peak Colby.: 2.70 m/s RAP Estimate: 5.00 mmHg TR Peak Gr.: 30.00 mmHg PA Pressure: 35.00 mmHg Left Ventricle The left ventricle is normal size. There is normal LV segmental wall motion. Mild concentric left ventricular hypertrophy. Left ventricular systolic function is normal. LVEF is 60-65%. This study is not technically sufficient to allow evaluation of the LV diastolic function due to atrial fibrillation. Right Ventricle The right ventricle is normal size. The right ventricular systolic function is normal. Atria Left atrium is moderately dilated. Right atrium is at the upper limits of normal. Aortic Valve Aortic valve is trileaflet, mildly sclerotic. Trace aortic regurgitation. There is no aortic valvular stenosis. Mitral Valve The mitral valve is normal in structure. Mild to moderate mitral regurgitation. Tricuspid Valve The tricuspid valve is normal in structure. Moderate tricuspid regurgitation. Estimated PAP is 35-40mmHg. Pulmonic Valve The pulmonary valve is normal in structure. Mild pulmonic regurgitation. Great Vessels The aortic root is normal in size. The ascending aorta is normal in size. IVC is normal in size and collapses >50% with inspiration. [facility] [address] [place] [address] 2 D/M-MODE ECHOCARDIOGRAM Name: RACHEL GARCIA Room #: 204-P ADM IN M.R.#: [id number] ������������� Admission: 12/05/18 ������������� Attend Phys: Valentina Sharif Discharge: ��� ������������� ��� Date of : 39 Date of Service: 12/16/18 1545 �� Report #: [id number] �������� ��������������������������������������������[id number] Pericardium There is no pericardial effusion. <Conclusion> The left ventricle is normal size. LVEF is 60-65%. Left atrium is moderately dilated. Right atrium is at the upper limits of normal. Aortic valve is trileaflet, mildly sclerotic. Trace aortic regurgitation. The mitral valve is normal in structure. Mild to moderate mitral regurgitation. The tricuspid valve is normal in structure. Moderate tricuspid regurgitation. Estimated PAP is 35-40mmHg. The pulmonary valve is normal in structure. Mild pulmonic regurgitation. There is no pericardial effusion. ��������������������������������������������� <ELECTRONICALLY SIGNED> ���������������������������������������� By: Salvador Ramirez MD ��������������������������������������������� 12/16/18 1545 1545 1545 Salvador Ramirez MD /INF
--- NOTE | 2018-12-16 16:01 | NUR ---
LEFT MESSAGE WITH SATYA WELLER AT [facility] FOR UPDATE.
--- NOTE | 2018-12-16 16:29 | NUR ---
PT HAS HAD MANY DIAGNOSTICS DONE TODAY, SHE ASKED TO BE LEFT ALONE TO [facility]. LUCID YET KEEPS ASKING THE RUNNER TO CRAWL IN TO HER BED. SAID SHE LOOKS LIKE HER COUISIN. ONLY HAD TWO BM'S THIS SHIFT
--- NOTE | 2018-12-16 17:29 | EKG ---
[address] [place] [address] ELECTROCARDIOGRAM REPORT Name: RACHEL GARCIA Room #: 204-P ADM IN M.R.#: [id number] ������������������ Admission: 12/05/18 ������������������ Attend Phys: Zulay Shepard MD Discharge: ������������������ Date of : 37 Report #: [id number] ����������������������������������������������������������������� [id number] THIS REPORT FOR: //name// [facility] Test Date: 2018-12-16 Test Time: 10:22:57 Pat Name: RACHEL GARCIA Department: Room: 204 P Gender: F Obstetrics Tech: Clint ISAAC : 1935 Requested By: Zulay Shepard Order Number: [id number] MD: Pedro Luis Roberts Measurements Intervals [place] Rate: 135 P: FL: QRS: -9 QRSD: 87 T: 173 QT: 273 QTc: 410 Interpretive Statements Atrial fibrillation Nonspecific ST and T wave abnormality Poor R wave progression Compared to ECG 12/05/2018 12:59:20 Sinus rhythm no longer present ST and T wave abnormality is new Electronically Signed On 12-16-2018 17:29:44 CDT by Pedro Luis Roberts [email or web address] ��������������������������������������������� <ELECTRONICALLY SIGNED> ���������������������������������������� By: Pedro Luis Roberts MD, [facility] ��������������������������������������������� 12/16/18 1729 1022 1022 Pedro Luis Roberts MD, [facility] /EPI
[2018-12-16 17:39] LABS: URINE CREATININE-RANDOM* 244.5 mg/dL
[2018-12-17] VITALS (13 sets, daily range): BP systolic 86–135; BP diastolic 41–63
[2018-12-17 04:07] LABS: HEMATOCRIT 33.8 % (37.0-47.0); HEMOGLOBIN 10.7 gm/dL (12.0-15.0); MCH 28.7 pg (26.0-34.0); MCHC 31.6 g/dL (28.0-37.0); MCV 90.8 fL (80.0-100.0); PLATELET COUNT 362 thou/uL (150-400); RBC 3.72 mil/uL (4.20-5.00); RDW 17.2 % (10.5-14.5); WBC 22.3 thou/uL (4.0-11.0)
[2018-12-17 04:21] LABS: CALCIUM 7.8 mg/dL (8.5-10.1); PHOSPHORUS 4.2 mg/dL (2.5-4.9); POTASSIUM 3.8 mmol/L (3.5-5.1); TOTAL BILIRUBIN 0.4 mg/dL (<0.1-1.0); TOTAL PROTEIN 5.7 g/dL (6.4-8.2)
[2018-12-17 04:25] LABS: CREATININE 3.9 mg/dL (0.6-1.0)
[2018-12-17 04:48] LABS: ABSOLUTE NEUTROPHILS 14.9 thou/uL (1.4-8.2)
[2018-12-17 04:50] LABS: ANISOCYTOSIS 1+; PLATELET ESTIMATE NORMAL
--- NOTE | 2018-12-17 07:52 | NUR ---
BP LOW AT THE BEGINNING OF THE SHIFT.DOCTOR TELEPHONE TRIAGE NURSE WAS INFORMED AND RECEIVED ORDERS.PLS SEE VITALS.SEPSIS SCREENING POSITIVE THIS AM. WAS INFORMED.NO NEW ORDERS.WILL CONTINUE POC.
--- NOTE | 2018-12-17 15:37 | NUR ---
sp with SW at [facility] and updated on care. Patient is not a corey lift at facility she is sit/stand and used a motorized wc at facility. Patient usually A/Ox4 and aware of situation. casemgt following.
[2018-12-17 16:01] LABS: URINE CREATININE-RANDOM* 185.9 mg/dL
[2018-12-17 17:46] LABS: HEMATOCRIT 34.2 % (37.0-47.0); HEMOGLOBIN 10.9 gm/dL (12.0-15.0); MCV 90.7 fL (80.0-100.0); PLATELET COUNT 340 thou/uL (150-400); RBC 3.77 mil/uL (4.20-5.00); RDW 16.9 % (10.5-14.5); WBC 23.2 thou/uL (4.0-11.0)
[2018-12-17 18:16] LABS: ABSOLUTE NEUTROPHILS 12.3 thou/uL (1.4-8.2)
[2018-12-17 18:17] LABS: ANISOCYTOSIS 1+; MACROCYTES 1+
--- NOTE | 2018-12-17 21:20 | NUR ---
ASSUMED CARE AT SHIFT CHANGE, ALERT AND ORIENTED TO SELF. BP LOW AND HR HIGH, NOTIFED AND ORDERS RECIEVED AND PATIENT MEDICATED. DR MIDDLETON NOTIFIED ABOUT PATEINT OUTPUT,CHATMAN INSERTED PER ORDERS. CHATMAN WITH SCANT AMOUNT OF URINE, DR HARTMANN NOTIFIED AND PATIENT TRANFERED TO ICU.
[2018-12-18] VITALS (37 sets, daily range): BP systolic 95–160; BP diastolic 30–99
[2018-12-18 05:12] LABS: ABSOLUTE NEUTROPHILS 12.8 thou/uL (1.4-8.2); BASOPHILS 0.9 % (0.0-2.0); EOSINOPHILS 1.2 % (0.0-3.0); HEMATOCRIT 34.3 % (37.0-47.0); HEMOGLOBIN 10.9 gm/dL (12.0-15.0); LYMPHOCYTES 18.5 % (24.0-44.0); MCH 29.1 pg (26.0-34.0); MCHC 31.6 g/dL (28.0-37.0); MCV 91.9 fL (80.0-100.0); PLATELET COUNT 295 thou/uL (150-400); POLYS 77.4 % (36.0-66.0); RBC 3.74 mil/uL (4.20-5.00); RDW 16.9 % (10.5-14.5); WBC 16.6 thou/uL (4.0-11.0)
[2018-12-18 05:27] LABS: CALCIUM 7.7 mg/dL (8.5-10.1); CREATININE 4.8 mg/dL (0.6-1.0); PHOSPHORUS 5.6 mg/dL (2.5-4.9); POTASSIUM 5.1 mmol/L (3.5-5.1)
--- NOTE | 2018-12-18 05:49 | NUR ---
ASSUMED PT CARE AT 1900 WITH NO SIGN OF DISTRESS NOTED. PT IS ALERT AND ORIENTED TO SELF AND PLACE. NO FAMILY AT BEDSIDE. ASSESSMENT DONE AND CHARTED. VITAL SIGNS STABLE. AFIB CONTROLLED. SCHEDULED MEDS ADMINISTERED TO PT. PT TOLERATED PO INTAKE. PT HAD TWO FORM OF DIARRHEA STOOLS AT HS. PT IS TURNED NEEDED. NO SIGN OF DISTRESSED NOTED. CONTINUE TO MONITOR. DENIES ANY FURTHER NEEDS AT THIS TIME.
--- NOTE | 2018-12-18 11:05 | NUR ---
OBTAINED TELEPHONE CONSENT FOR TEMPORARY TUNNELED DIALYSIS CATHETER. CALL PLACED TO GRETCHEN-GRAND DAUGHTER, NO CALL RETURNED. THEN CALL PLACED TO MIKAEL GARCIA-DAUGHTER & CONSENT OBTAINED. INTERVENTIONAL RADIOLOGY CREW RECEIVED REPORT AND IS TRANSPORTING PT PER ICU BED WITH UG DESIGNER.
--- NOTE | 2018-12-18 18:54 | NUR ---
NPO FOR DIALYSIS CATHETER INSERTION, THEN DURING HER FIRST DIALYSIS RUN -500CC REMOVED. PT WELL TOLERATED. PT REMAINED ALERT TO PERSON, PLACE ALONG WITH INTERMITTENT CONFUSED SPEECH. CONTROLLED AFIB, ROOM AIR, TOLERATED THICKENED LIQUIDS WITH ASSIST, REFUSED EVENING MEAL, CHATMAN WITH SMALL AMOUNT CLEAR YELLOW URINE OUTPUT. FAMILY MEMBERS CALLED TO INQUIRE REGARDING PT STATUS, UPDATED, QUESTIONS ANSWERED TO SATISFACTION.
[2018-12-19] VITALS (16 sets, daily range): BP systolic 104–165; BP diastolic 36–78
[2018-12-19 01:05] LABS: HEP B SURFACE Ab(ANTI-HBS Reactive (()); HEPATITIS B SURFACE AG Negative (Negative)
[2018-12-19 04:20] LABS: ABSOLUTE NEUTROPHILS 7.2 thou/uL (1.4-8.2); BASOPHILS 1.2 % (0.0-2.0); EOSINOPHILS 0.1 % (0.0-3.0); HEMATOCRIT 30.2 % (37.0-47.0); HEMOGLOBIN 10.1 gm/dL (12.0-15.0); MCH 29.7 pg (26.0-34.0); MCHC 33.6 g/dL (28.0-37.0); MCV 88.6 fL (80.0-100.0); MONOCYTES 5.8 % (1.0-8.0); PLATELET COUNT 258 thou/uL (150-400); POLYS 72.9 % (36.0-66.0); RBC 3.41 mil/uL (4.20-5.00); RDW 15.8 % (10.5-14.5); WBC 9.8 thou/uL (4.0-11.0)
[2018-12-19 04:33] LABS: ALBUMIN 2.1 g/dL (3.4-5.0); CALCIUM 7.7 mg/dL (8.5-10.1); PHOSPHORUS 4.6 mg/dL (2.5-4.9); POTASSIUM 4.2 mmol/L (3.5-5.1)
[2018-12-19 04:34] LABS: CREATININE 3.4 mg/dL (0.6-1.0)
--- NOTE | 2018-12-19 06:40 | NUR ---
ASSUMED PT CARE AT 1930 WITH NO SIGN OF DISTRESS NOTED. PT IS ALERT BUT CONFUSED. PT IS ORIENTED TO SELF AND PLACE ONLY. NO FAMILY AT BEDSIDE. SCHEDULED MEDS ADMINISTERED TO PT. PT IS STABLE AFTER DIALYSIS DURING THE DAY. STILL IN AFIB, VITAL SIGNS STABLE. CONTINUE NURSING POC, DENIES ANY FURTHER NEEDS AT THIS TIME.
--- NOTE | 2018-12-19 08:11 | EKG ---
[place] [address] [facility] [place] [address] ELECTROCARDIOGRAM REPORT Name: RACHEL GARCIA Room #: 241-P ADM IN M.R.#: [id number] ������������������ Admission: 12/05/18 ������������������ Attend Phys: Zulay Shepard MD Discharge: ������������������ Date of : 37 Report #: [id number] ����������������������������������������������������������������� [id number] THIS REPORT FOR: //name// [facility] Test Date: 2018-12-18 Test Time: 07:55:16 Pat Name: RACHEL GARCIA Department: Room: 241 P Gender: F Remote Sensing Technician: Clint ISAAC : 1935 Requested By: Kitty Howard Order Number: [id number] MD: Pedro Luis Roberts Measurements Intervals [place] Rate: 84 P: SC: QRS: -13 QRSD: 95 T: 171 QT: 318 QTc: 376 Interpretive Statements Atrial fibrillation Nonspecific T wave abnormality Compared to ECG 12/16/2018 10:22:57 ST segment abnormality no longer present heart rate has slowed Electronically Signed On 12-19-2018 8:11:27 CDT by Pedro Luis Roberts [email or web address] ��������������������������������������������� <ELECTRONICALLY SIGNED> ���������������������������������������� By: Pedro Luis Roberts MD, [facility] ��������������������������������������������� 12/19/18 0811 0755 0755 Pedro Luis Roberts MD, [facility] /EPI
[2018-12-19 09:23] LABS: URINE BILIRUBIN NEGATIVE (Negative); URINE BLOOD TRACE (Negative); URINE CLARITY SL CLOUDY; URINE COLOR YELLOW; URINE GLUCOSE-RANDOM* NEGATIVE (Negative); URINE KETONES NEGATIVE (Negative); URINE LEUKOCYTES 1+ (Negative); URINE NITRITE NEGATIVE (Negative); URINE PROTEIN (DIPSTICK) TRACE (Negative); URINE SPECIFIC GRAVITY >= 1.030 (1.005-1.035); URINE UROBILINOGEN 0.2 E.U./dl (0.2-1.0)
[2018-12-19 09:36] LABS: SQUAMOUS 0-3 Few /LPF (0-3); YEAST Present (None Seen)
[2018-12-19 09:37] LABS: BACTERIA 1-9 Few /HPF (None Seen); CASTS None Seen /LPF (None Seen); CRYSTALS None Seen /LPF (None Seen); URINE RBC None Seen /HPF (0-2); URINE WBC 6-15 Few /HPF (0-5)
--- NOTE | 2018-12-19 13:19 | NUR ---
ASSUMED CARE AT 0700. PT A&O TO SELF. PT KNOWS SHE IS IN THE HOSPITAL BUT UNABLE TO TELL WHAT HOSPITAL AND DOES NOT KNOW TIME OR SITUATION. PT UNABLE TO STATE THAT SHE LIVES AT [facility]. PT WAS FED BREAKFAST AND ATE APPROXIMATELY 50% OF MEAL WHEN FED. PT HAS VERY POOR APPETITE. PT TURNED Q2 HOURS. PT HAS SCD'S ON. PT REFUSED 1100 BREATHING TX AND WAS USING PROFANITIES TOWARDS RT. PT THEN TOOK A 30 MIN NAP AND WOKE UP VERY PLEASANT. PT STATES SHE AGREES TO HAVE TREATMENT NOW. RT NOTIFIED. PT TOOK MEDS FINE THAT WERE CRUSHED IN APPLESAUCE . PT AFEBRILE. NEW ORDERS FOR DIALYSIS TOMORROW. IT WAS PASSED ALONG THAT PT HAS RASH TO HANDS, ARMS AND UPPER LEGS. RASH IS NOT VISABLE CURRENTLY.
--- NOTE | 2018-12-19 13:25 | NUR ---
PT'S SON IS ZAIDA GARCIA CONTACT PHONE NUMBER [phone] OR [phone]. PT'S SON LIVES IN [facility] PER DAUGHTER MIKAEL.
--- NOTE | 2018-12-19 13:49 | NUR ---
REPORT CALLED TO [facility]. ROOM 202
--- NOTE | 2018-12-19 15:40 | NUR ---
SATYA reviewed chart and spoke with nursing. Pt was transferred to ICU from CCU on 12/17. Pt transferred back to CCU today. Pt has started dialysis. Next dialysis will be tomorrow. SATYA left voice message for pt's dtr, Sarah, to provide update and notify of room move. SATYA left voice message for Nayla at [facility] to provide update. No weekend discharge planned. SATYA is following to assist as needed with discharge planning.
[2018-12-20] VITALS: BP 183/83
[2018-12-20 03:20] VITALS: BP 159/81
[2018-12-20 05:01] LABS: ABSOLUTE NEUTROPHILS 5.1 thou/uL (1.4-8.2); BASOPHILS 0.7 % (0.0-2.0); EOSINOPHILS 0.1 % (0.0-3.0); HEMATOCRIT 30.2 % (37.0-47.0); HEMOGLOBIN 9.7 gm/dL (12.0-15.0); LYMPHOCYTES 14.8 % (24.0-44.0); MCH 28.9 pg (26.0-34.0); MCHC 32.3 g/dL (28.0-37.0); MCV 89.5 fL (80.0-100.0); MONOCYTES 10.1 % (1.0-8.0); PLATELET COUNT 213 thou/uL (150-400); POLYS 74.3 % (36.0-66.0); RBC 3.37 mil/uL (4.20-5.00); WBC 6.8 thou/uL (4.0-11.0)
[2018-12-20 05:12] LABS: ALBUMIN 2.3 g/dL (3.4-5.0); CALCIUM 7.8 mg/dL (8.5-10.1); CREATININE 3.6 mg/dL (0.6-1.0); PHOSPHORUS 4.8 mg/dL (2.5-4.9); POTASSIUM 4.2 mmol/L (3.5-5.1)
--- NOTE | 2018-12-20 05:51 | NUR ---
ASSUMED CARE AT 1900, ASSESSMENT COMPLETED Q4 HOURS. PT INTERMITTENLY A&Ox2-3, MORE FORGETFUL DURING THE NIGHT, THOUGHT SHE WAS AT A [employer] GAME. C/O GENERALIZED PAIN, WORSE WITH MOVEMENT, WELL SACRAL PAIN. DENIES NAUSEA; C/O FEELING HUNGRY AND THIRSTY-GIVEN THICKENED WATER AND JUICE AND A PUDDING; MULTIPLE SLIMY, GREEN STOOLS OVERNIGHT. HEAVY MOUTH BREATHER, BUT LUNGS ARE CLEAR/DIMINISHED. PALMS OF HANDS VERY RED AND WARM, WITH 2+ MILDLY PITTING EDEMA, HAS BEEN SR ON TELE WITH HR 80-90 OVERNIGHT. PT HAS MULTIPLE OPEN SPOTS ON HER BUTTOCKS, LIKELY FROM SHEARING; BRIGHT RED AND MOIST, APPLIED BARRIER CREAM. PT WAS ALSO NOTED TO HAVE DEEP TISSUE INJURIES DEVELOPING ON BOTH HEELS; HAVE KEPT LEGS ELEVATED OFF BED, WILL ASK DAY SHIFT TO ORDER PRAFO BOOTS. WOUND PHOTOS TAKEN OF BOTH HEELS AND BUTTOCKS. REINFORCED TEGADERM OVER DIALYSIS CATHETER. LARGE AMOUNTS OF SEDIMENT IN CHATMAN, DRAINING LIGHT YELLOW URINE. NO OHTER CONCERNS, WILL CONTINUE TO MONITOR.
[2018-12-20 07:51] VITALS: BP 183/84
--- NOTE | 2018-12-20 11:44 | NUR ---
PT STATRED DIAYLSIS TODAY AT 1000 CONT AT THIS TIME WITH DIAYLSIS.
[2018-12-20 16:19] VITALS: BP 186/88
--- NOTE | 2018-12-20 17:35 | NUR ---
PT RESTING IN BED, FEED DINNER PATIENT ATE 25% AND DRANK 120 CC ICE TEA. PT CONFUSED AT TIMES. HAS CHATMAN CATH TO D/D WITH CLEAR YELLOW URINE IN CHATMAN BAG. HAD DIAYLSIS THIS AM 1.5 L TAKEN OFF.PT W/O PAIN OR RESP DISTRESS AT THIS TIME.
[2018-12-20 20:00] VITALS: BP 159/76
[2018-12-21] VITALS: BP 159/58
[2018-12-21 04:00] VITALS: BP 172/81
[2018-12-21 06:35] LABS: HEMATOCRIT 29.1 % (37.0-47.0); MCH 30.3 pg (26.0-34.0); MCHC 34.3 g/dL (28.0-37.0); MCV 88.2 fL (80.0-100.0); RBC 3.3 mil/uL (4.20-5.00); RDW 15.6 % (10.5-14.5); WBC 4.8 thou/uL (4.0-11.0)
[2018-12-21 06:54] LABS: ALBUMIN 2.3 g/dL (3.4-5.0); CALCIUM 7.9 mg/dL (8.5-10.1); CREATININE 2.1 mg/dL (0.6-1.0); POTASSIUM 3.9 mmol/L (3.5-5.1)
[2018-12-21 07:44] VITALS: BP 143/69
[2018-12-21 09:48] LABS: URINE BILIRUBIN NEGATIVE (Negative); URINE BLOOD TRACE (Negative); URINE CLARITY CLEAR; URINE COLOR YELLOW; URINE GLUCOSE-RANDOM* NEGATIVE (Negative); URINE KETONES NEGATIVE (Negative); URINE LEUKOCYTES-REFLEX NEGATIVE (Negative); URINE NITRITE-REFLEX NEGATIVE (Negative); URINE PROTEIN (DIPSTICK) NEGATIVE (Negative); URINE SPECIFIC GRAVITY 1.015 (1.005-1.035); URINE UROBILINOGEN 0.2 E.U./dl (0.2-1.0)
[2018-12-21 12:14] VITALS: BP 159/85
[2018-12-21 15:43] VITALS: BP 153/69
--- NOTE | 2018-12-21 18:50 | NUR ---
ASSUMED CARE AT 0700. PT ALERT TO SELF AND PLACE, NOT TIME OR SITUATION. PT WAS ABLE TO TELL NURSING THAT SHE RESIDES AT [facility] AND THAT SHE HAS A SON AND DAUGHTER. PT HAS POOR APPETITE AND INTAKE. PT ATE APPROXIMATELY 50% OF BREAKFAST, REFUSED LUNCH AND ONLY ATE 25% OF DINNER. PT TURNED Q2 HOURS. PT HAS LARGE OPEN AREA ON BOTTOM. SKIN PROTECTANT APPLIED. PT HAD LOOSE STOOLS X1. PT HAD NO DIALYSIS TODAY. RENAL DOCTOR TO REEVALUATE NEED IN AM. BED IN LOW LOCKED POSITION, FALL PRECAUTIONS IN PLACE.
[2018-12-21 20:30] VITALS: BP 161/87
--- NOTE | 2018-12-22 01:16 | NUR ---
PATIENTS CARES WERE ASSUMED AT SHIFT CHANGE. PATIENT WAS ASSESSED AND MEDS WERE PASSED. PATIENTS WAS TURNED EVERY 3 HOURS DUE TO TURNING HER IS VERY PAINFUL. HOB REMAINS ELEVATED 30 DEGRESS DUE TO HER SOA. HOURLY ROUNDING WAS DONE. IS IN LOW AND LOCKED POSITION. THE BED ALARM IS ON.
[2018-12-22 04:35] VITALS: BP 183/75
[2018-12-22 05:50] LABS: ALBUMIN 2.4 g/dL (3.4-5.0); CALCIUM 7.9 mg/dL (8.5-10.1); PHOSPHORUS 4.8 mg/dL (2.5-4.9)
[2018-12-22 07:05] VITALS: BP 180/80
--- NOTE | 2018-12-22 10:58 | NUR ---
WOUND CONSULT; BILATERAL HEEL DTI'S NOTED. FRICTION SHEARING REALATED INJURY TO THE BUTTOCKS BILATERALLY. THE PATIENTS BED IS UP HIGHER THAN 30 DEGREES AND THE PATIENT IS REFUSING TO TURN. SHE REFUSED TO LET ME ASSESS HER BUTTOCKS. MY ASSESSMENT WAS LIMITED TO PICTURES. CLEARLY FRICTION SHEARING WITH LINIAR TEARS WITH ROLLD PERIWOUND SKIN. RECOMMENDATION; ADD LOW AIRLOSS PUMP, ZGUARD TO BILAT BUTTOCKS DAILY/PRN, ORDER HEEL OFFLOADING BOOTS AND CONTINUE TO ENCOURAGE TURNING. DISCUSSED WITH JASEN
[2018-12-22 12:19] VITALS: BP 156/69
--- NOTE | 2018-12-22 15:26 | HC ---
[facility] [place] [address] CONSULTATION Name: RACHEL GARCIA Room #: 201-P ADM IN M.R.#: [id number] Admission: 12/05/18 ������������������ Attend Phys: Zulay Shepard MD Discharge: ������������������ Date of : 37 Report #: [id number] THIS REPORT FOR: //name// CC: FAM unknown Zulay Shepard DATE OF SERVICE: 12/11/2018 HISTORY OF PRESENT ILLNESS: The patient is an 83-year-old -[place]ian female who lives at [facility], has a history of dementia, degenerative arthritis, uses a power wheelchair/scooter as well as a lift device getting her into the power wheelchair/scooter. She was treated with the Bactrim for urinary tract infection. She then developed worsening confusion. Apparently had decreased p.o. intake, was admitted to [facility] with a sodium of 118. She was extremely confused. She was diagnosed with a metabolic encephalopathy/delirium. Nephrology has been involved. She was on salt tablets, fluid restriction. Sodium has improved with the last sodium level noted to be 139. There was a question as to whether she had a stroke and an MRI of the brain was obtained, which was negative. She is noted to have pneumonitis with elevated liver function tests. Speech therapy has seen her and noted to be pocketing food per staff. Diet recommendations are for pureed nectar thickened liquids. PAST MEDICAL HISTORY: Includes diabetes mellitus type 2, neuropathy, dementia, hyperlipidemia, anxiety, hypertension, anemia, GERD, hypokalemia with atrial fibrillation, on anticoagulation. ALLERGIES: CAPTOPRIL, HYDROCHLOROTHIAZIDE, NASONEX, CODEINE, FELDENE, PROPOXYPHENE, CANDESARTAN. MEDICATIONS: Please see the full medication listing. FAMILY HISTORY: Noncontributory. SOCIAL HISTORY: She is a resident at [facility]. Again, there was a lift device, power wheelchair/scooter bound. Noted to have a granddaughter in [place]. PHYSICAL EXAMINATION: An 83-year-old -[place]ian female, very confused. She could not tell me the name of the hospital. She could not tell me where she lived. She will follow very basic 1 step commands after a definite latency. Temperature 97.9, pulse 75, respirations 18, blood pressure 130/65. Facies appeared symmetric. Appeared to have diffuse weakness of both upper extremities, probably a grade 3+/5. Lower extremities also appeared to have diffuse weakness, probably a grade 3+/5. It was difficult to actually test her volitionally. Tone appeared reasonably intact. [place] [address] CONSULTATION Name: RACHEL GARCIA Room #: 201-P [facility] IN M.R.#: [id number] Admission: 12/05/18 ������������������ Attend Phys: Zulay Shepard MD Discharge: ������������������ Date of : 37 Report #: [id number] rolling side to side. Bed mobility has been max assist. ASSESSMENT: An 83-year-old -Jordanian female with the following problem list: 1. Severe hyponatremia, now improved. 2. Altered mental status/metabolic encephalopathy. 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 3. Pneumonitis. 4. Elevated liver function tests. 5. Dysphagia. Speech therapy involved. PLAN: The patient was at a very low level premorbidly living at [facility]. I questioned if she would have the tolerance for an acute [address] [place] [address] inpatient rehabilitation stay. I also questioned if she would meet the discharge criteria. At this point, we will follow along with you regarding rehab therapy issues. Thank you for asking us to assist in this patient's care. ��������������������������������������������� <ELECTRONICALLY SIGNED> ���������������������������������������� By: Marcelo Dahl MD ��������������������������������������������� 12/22/18 1526 [id number] [id number] Marcelo Dahl MD /[facility]
--- NOTE | 2018-12-22 15:51 | NUR ---
Updated [facility] call to SW to discuss dc planning.
--- NOTE | 2018-12-22 15:55 | NUR ---
FAXED SPEECH/SWALLOW EVAL NOTES TO [facility] SPOKE WITH NITHIN IN ADM SHE RECEIVED INFO. DCP TO FOLLOW.
[2018-12-22 17:00] VITALS: BP 127/70
[2018-12-22 20:30] VITALS: BP 124/59
[2018-12-23 04:54] VITALS: BP 128/60
--- NOTE | 2018-12-23 06:10 | NUR ---
PATIENTS CARE WAS ASSUMED AT SHIFT CHANGE. PATIENT WAS ASSESSED AND MEDS WERE PASSED. PATIENT DID HAVE TWO BMS THIS SHIFT. BLACK LIQUID STOOL AND VERY LARGE.HOURLY ROUNDING WAS DONE. THE BED IS IN A LOW AND LOCKED POSITION. THE BED ALARM IS ON
[2018-12-23 07:30] LABS: ALBUMIN 2.5 g/dL (3.4-5.0); CREATININE 1.8 mg/dL (0.6-1.0); PHOSPHORUS 4.8 mg/dL (2.5-4.9); POTASSIUM 3.5 mmol/L (3.5-5.1)
[2018-12-23 07:47] VITALS: BP 131/61
[2018-12-23 11:43] VITALS: BP 130/61
--- NOTE | 2018-12-23 12:37 | NUR ---
spoke with [facility] and faxed pertinent information. [facility] reviewing if can meet patients needs for return. If phy orders patient can rec daily therapy.
--- NOTE | 2018-12-23 13:56 | NUR ---
ASSUMED CARE AT 0700, SHIFT ASSESSMENT DONE, MEDS GIVEN CRUSHED, VSS. ACHS, APPETITE POOR, DOES NOT LIKE MECHANICAL SOFT DIET AND THICK LIQUIDS. Q2 TURNS, REMAINS ALERT TO SELF. WILL CONTINUE TO ASSESS AND ASSIST WITH ADLs NEEDED.
--- NOTE | 2018-12-23 14:21 | NUR ---
met with patient who discussed moving from [facility] to . She was able to say she was in hospital but could not recall which hospital. Sp with [facility] who recommend post acute. [facility] until [facility]. [facility] she prefers facility with Dr Peraza can follow. She requests discuss with Nayla HERNADEZ at [facility]. Discussed with SATYA referrals to [facility] for eval.
--- NOTE | 2018-12-23 15:27 | NUR ---
FAXED REFERRAL TO [facility] SPOKE WITH XIMENA REYNA SHE RECEIVED REFERRAL AND WILL REVIEW. FAXED REFERRAL TO [facility] SPOKE WITH ANGI IN [place] SHE HAS NOT FEMALE BEDS TIL 12/27. DCP TO FOLLOW.
[2018-12-23 16:13] VITALS: BP 106/67
[2018-12-23 21:05] VITALS: BP 136/68; BP 136/77
--- NOTE | 2018-12-24 01:09 | NUR ---
PATIENTS CARES WERE ASSUMED AT SHIFT CHANGE. PATIENT WAS ASSESSED AND MEDS WERE PASSED. PATIENT WAS GIVEN A BED BATH AND LINEN WAS CHANGED. A CALL WAS PLACED TO THE NURSE PARCTINER FOR A RECTAL TUBE DUE TO SKIN BREAK DOWN ON HER BOTTOM. IF APPROVED WILL PLACE IT. HOURLY ROUNDING WAS DONE. PATIETN WAS TURN EVERY 3 HOURS TO PROMOTE GOOD REST. THE BED IS IN A LOW AND LOCKED POSISTION. THE BED ALARM IS ON
--- NOTE | 2018-12-24 02:35 | NUR ---
Doctor Sowmya WAS CALLED FOR THE FECAL MANAGEMENT SYSTEM. DOCTOR DID APPROVE DUE TO HER SKIN BREAKDOWN. CALL THE AUTOMOTIVE PARTS SPECIALIST FOR THIS APPLIANCE AND SHE IS TO BRING IT TO THE FLOOR.
[2018-12-24 04:14] LABS: ALBUMIN 2.5 g/dL (3.4-5.0); CALCIUM 8.3 mg/dL (8.5-10.1); CREATININE 1.7 mg/dL (0.6-1.0); PHOSPHORUS 4.2 mg/dL (2.5-4.9); POTASSIUM 3.9 mmol/L (3.5-5.1); TOTAL BILIRUBIN 0.4 mg/dL (<0.1-1.0)
[2018-12-24 04:24] LABS: HEMATOCRIT 30.5 % (37.0-47.0); HEMOGLOBIN 10.2 gm/dL (12.0-15.0); MCH 29.6 pg (26.0-34.0); MCHC 33.4 g/dL (28.0-37.0); MCV 88.5 fL (80.0-100.0); RBC 3.45 mil/uL (4.20-5.00); RDW 15.4 % (10.5-14.5); WBC 6.8 thou/uL (4.0-11.0)
[2018-12-24 04:45] VITALS: BP 151/83
[2018-12-24 08:25] VITALS: BP 159/76
--- NOTE | 2018-12-24 11:52 | NUR ---
PATIENT CARE ASSUMED AT 7AM, ASSESSMENT CHARTED, PATIENT C/O PAIN AT RIGHT UPPER CHEST INCISION AND NAUSEA. PATIENT GIVEN HYDROCODONE FOR PAIN, STATES SOME RELIEF. ALSO GIVEN ZOFRAN FOR NAUSEA, STATES NAUSEA HAS SUBSIDED. CALL TO DR. RIVERO AT 11:45 TO REPORT BG OF [phone]. WILL CONTINUE TO MONITOR.
[2018-12-24] MEDS ORDERED: CLARITIN10 MG PO (12:28)
[2018-12-24] MEDS ORDERED: PREDNISONE 20 M20 MG PO (12:30)
--- NOTE | 2018-12-24 12:30 | NUR ---
[facility] with no beds avail. [facility] not accepting due to too low level. Sp with Dr Kapoor and Nayla at [facility] referral to [place] for review as Dr Kapoor can follow patient at facility and continuity of care.
[2018-12-24 12:41] VITALS: BP 128/57
--- NOTE | 2018-12-24 15:41 | NUR ---
CALM. GENERALLY SOMNOLENT. COMPLETE CARE. CM LOOKING AT [facility] FOR PLACEMENT. DR. BRYANT DOES NOT WANT FECAL MANAGEMENT BECAUSE IT WOULD KEEP HER FROM BEING PLACED. SR PER TELE. WILL CONTINUE TO MONITOR.
[2018-12-24 16:00] VITALS: BP 147/73
--- NOTE | 2018-12-24 16:26 | NUR ---
spoke with gdtr Irina to alert of referral to [facility] for post acute care.
--- NOTE | 2018-12-24 16:49 | NUR ---
FAXED REFERRAL TO [facility] SPOKE WITH TIGIST IN ADM SHE RECEIVED REFERRAL AND WILL REVIEW. DCP TO FOLLOW.
[2018-12-24 21:58] VITALS: BP 141/73
[2018-12-25 03:47] LABS: HEMATOCRIT 29.2 % (37.0-47.0); HEMOGLOBIN 9.5 gm/dL (12.0-15.0); MCHC 32.6 g/dL (28.0-37.0); RBC 3.28 mil/uL (4.20-5.00); RDW 15.7 % (10.5-14.5); WBC 9.3 thou/uL (4.0-11.0)
[2018-12-25 03:48] LABS: ALBUMIN 2.4 g/dL (3.4-5.0); CALCIUM 7.7 mg/dL (8.5-10.1); CREATININE 1.5 mg/dL (0.6-1.0); POTASSIUM 3.4 mmol/L (3.5-5.1); TOTAL BILIRUBIN 0.5 mg/dL (<0.1-1.0); TOTAL PROTEIN 6.3 g/dL (6.4-8.2)
[2018-12-25 04:00] VITALS: BP 142/64
--- NOTE | 2018-12-25 05:24 | NUR ---
RECEIVED PT'S CARE AT 1900; PT. ON BED; ALERT TO PERSON; DURING ASSESSMENT NO C/O PAIN; REQUESTED WATER; ABLE TO TAKE MEDICATION ON PUDDIN; C/O PAIN WHEN TURNING FROM SIDE TO SIDE ON L. HIP SIDE; WOUND CARE PERFORM; HEELS OFF; NO ABLE TO REST THROUGH THE NIGHT; CALM; COOPERATIVE; ASSESSMENT CHARGED; FOLLOWING POC; MONITORING; WILL PASS ON REPORT.
[2018-12-25 07:00] VITALS: BP 169/91
[2018-12-25 11:20] VITALS: BP 147/75
--- NOTE | 2018-12-25 12:05 | NUR ---
PT DISCHARGING TODAY TO [facility] FOR SKILLED STAY THEN BACK TO [facility]. FAXED DC ORDERS/SUMMARY TO FACILITY SPOKE WITH TIGIST IN ADM SHE RECEIVED ORDERS AND ARRANGED TRANSPORT VIA [facility] AT [phone]. NOTIFIED PT'S DTR (LEMUEL) AND LEFT MSG WITH SON (LAKSHMI) OF DC AND TIME OF TRANSPORT. UNIT NOTIFIED AND CHART COPY PER US. RN TO CALL REPORT TO [phone].
--- NOTE | 2018-12-25 13:53 | NUR ---
PT CARE ASSUMED APPROX 0700. PT ALERT BUT DISORIENTED X4. DENIES PAIN AND SOA. VSS. BS WNL. DISCHARGED TO MEDIC[facility] A MOMENT AGO. REPORT CALLED TO ESTHER NURSE AT RECEIVING FACILITY. RECEIVING NURSE AWARE THAT PT HAS NOT VOIDED POST URINARY CATH REMOVAL. AWARE TO MONITOR FOR POST REMOVAL VOID OR TO BLADDER SCAN AND POTENTIALLY REINSERT. NURSE AGREEABLE. IV OUT, TELE OFF. NO DISTRESS NOTED.
--- NOTE | 2018-12-27 08:06 | H ---
[facility] [place] [address] HISTORY AND PHYSICAL Name: RACHEL GARCIA Room #: 201-P [facility] IN M.R.#: [id number] Admission: 12/05/18 ������������������ Attend Phys: Zulay Diez MD Discharge: 12/25/18 ������������������ Date of : 39 Report #: [id number] THIS REPORT FOR: //name// CC: FAM unknown Zulay Diez DATE OF SERVICE: 12/05/2018 ATTENDING PHYSICIAN: Zulay Diez MD. CHIEF COMPLAINT: Confusion and low sodium. HISTORY OF PRESENT ILLNESS: The patient is an 83-year-old lady, well known to me from her residence at [facility]. The patient has just general debility due to osteoarthritis and gets around in an electric wheelchair. The patient was treated for urinary tract infection with Bactrim and was noted to be extremely confused on morning of 12/05/2018. The patient was evaluated in the ER and noted to have a sodium of 118. The patient has had poor p.o. intake of fluids. She was extremely confused and is not able to give any details of history. This morning, when I saw her, the patient is unable to give any details of her illness, but was noted to have a possible rash on her chest. She is currently on IV Rocephin. PAST MEDICAL HISTORY: Significant for history of anxiety, hypertension, hyperlipidemia, neuropathy, diabetes mellitus type 2, dementia, anemia, gastroesophageal reflux disease and hypokalemia with atrial fibrillation, on anticoagulation. ALLERGIES: SHE IS KNOWN TO BE ALLERGIC TO CANDESARTAN, CAPTOPRIL, HYDROCHLOROTHIAZIDE, NASONEX, CODEINE, FELDENE AND PROPOXYPHENE. MEDICATIONS: She was currently on was loperamide, guaifenesin, amlodipine, metoprolol, MiraLax, Lexapro, rivaroxaban, gabapentin and Tylenol. FAMILY HISTORY: Noncontributory. SOCIAL HISTORY: As noted, the patient is a resident at [facility]. She does not smoke or drink alcohol. REVIEW OF SYSTEMS: Not possible. The patient does have a granddaughter in [place], and the patient is a full code. PHYSICAL EXAMINATION: GENERAL: Pleasant elderly lady who was extremely confused. She was in bed. VITAL SIGNS: She was afebrile, temperature 36.4. Pulse of 86, respiration rate of 30, blood pressure 146/92 and oxygen saturation 95% on room air. [address] [address] HISTORY AND PHYSICAL Name: RACHEL GARCIA Room #: 201-P [facility] IN M.R.#: [id number] Admission: 12/05/18 ������������������ Attend Phys: Zulay Diez MD Discharge: 12/25/18 ������������������ Date of : 39 Report #: [id number] HEENT: Skull was atraumatic. There was no pallor. Mucosa was extremely dry. NECK: The patient had a possible rash on anterior chest wall. LUNGS: Coarse. There were some crackles in the left lung base. HEART: First and second heart sound, which was irregular. ABDOMEN: Soft, nontender, bowel sounds normally heard. EXTREMITIES: Did not reveal any edema. NEUROLOGIC: The patient was moving all 4 extremities equally and normally. There was no focal weakness noted. LABORATORY DATA: This morning showed a sodium of 116, with a potassium of 4.4, chloride of 86, bicarbonate of 19, BUN of 18, creatinine of 1.2, glucose was 202. White cell count is 5.3, hemoglobin 12.9, hematocrit of 38.1 and a platelet count of 207. Chest x-ray showed left lower lobe infiltrate. UA was clear. Urine culture was pending. ASSESSMENT: 1. Metabolic encephalopathy. 2. Hyponatremia. 3. Diabetes mellitus. 4. Pneumonia. 5. Hypertension. 6. Atrial fibrillation. PLAN: To restart her meds, control of blood pressure. Restart anticoagulation. We will increase IV fluids to 125 mL and monitor sodium. Recheck labs in the morning and continue on IV Rocephin for now, hold the gabapentin and Lexapro and the patient to be a full code. ��������������������������������������������� <ELECTRONICALLY SIGNED> ���������������������������������������� By: Zulay Diez MD ��������������������������������������������� 12/27/18 [id number] Zulay Diez MD /nt
== END 2018-12-25 13:51 | DRG 682 ==
LOC: ER 11:42 → 2N 13:48 → EROBS 13:48 → 2N 15:20 → ICU 12-17 17:58 → 2N 12-19 14:58
PROVIDERS: Emergency Medicine; Hospitalist; Internal Medicine; Internal Medicine Geriatric Medicine; Internal Medicine Nephrology; Nurse Practitioner Family; Specialist; ADMIT Internal Medicine
DX: N17.9 Acute kidney failure, unspecified (principal); G93.41 Metabolic encephalopathy; J18.9 Pneumonia, unspecified organism; E87.1 Hypo-osmolality and hyponatremia; N39.0 Urinary tract infection, site not specified; E46 Unspecified protein-calorie malnutrition; E44.0 Moderate protein-calorie malnutrition; Z68.42 Body mass index [BMI] 45.0-49.9, adult; F41.9 Anxiety disorder, unspecified; I10 Essential (primary) hypertension; E78.5 Hyperlipidemia, unspecified; F32.9 Major depressive disorder, single episode, unspecified; F03.90 Unspecified dementia, unspecified severity, without behavioral disturbance, psychotic disturbance, mood disturbance, and anxiety; K21.9 Gastro-esophageal reflux disease without esophagitis; I48.0 Paroxysmal atrial fibrillation; R13.10 Dysphagia, unspecified; R41.0 Disorientation, unspecified; E11.42 Type 2 diabetes mellitus with diabetic polyneuropathy; K12.30 Oral mucositis (ulcerative), unspecified; K75.9 Inflammatory liver disease, unspecified; E83.39 Other disorders of phosphorus metabolism; E66.9 Obesity, unspecified; I95.9 Hypotension, unspecified; R74.0 Nonspecific elevation of levels of transaminase and lactic acid dehydrogenase [LDH]; D72.1 Eosinophilia; D69.6 Thrombocytopenia, unspecified; D64.9 Anemia, unspecified; Z88.8 Allergy status to other drugs, medicaments and biological substances; Z79.01 Long term (current) use of anticoagulants; Z79.899 Other long term (current) drug therapy
CPT/HCPCS: 10078; 10081; 10194; 27000; 32100

== ENCOUNTER → 2019-09-14 | Outpatient (CLI) | payer OTHER ==
[~2019-09-14] MED LIST: ADULT WAL-100 MG/5 M PO; AMLODIPINE BESY10 MG PO; APAP650 PO; ARTIFICIAL TEA1 EACH OPHTHALMIC; BACTRIM DS TAB1 EACH PO; CAL-GEST200 MG PO; CLARITIN10 MG PO; FEOSOL325 M1 PO; GABAPENTIN 100100 MG PO; LEXAPRO 10 MG T10 M2 PO; LOPERAMIDE 2 MG2 M1 PO; LOPRESSOR50 PO; MAXZIDE-25 MG1 EACH PO; MIRALAX17 GM PO; NYAMYC15 GM TOP; ONDANSETRON HCL4 M2 PO; POTASSIUM20 PO; PREDNISONE 20 M20 MG PO; SENEXON-S TABL1 EACH PO; VITAMIN D1000 UNI1 PO; XARELTO15 MG PO
== END ==
LOC: HYPER 09:53
DX: E11.622 Type 2 diabetes mellitus with other skin ulcer (principal); L89.313 Pressure ulcer of right buttock, stage 3; L98.411 Non-pressure chronic ulcer of buttock limited to breakdown of skin; E11.42 Type 2 diabetes mellitus with diabetic polyneuropathy; M47.14 Other spondylosis with myelopathy, thoracic region; R41.82 Altered mental status, unspecified; R26.2 Difficulty in walking, not elsewhere classified; I10 Essential (primary) hypertension; M19.90 Unspecified osteoarthritis, unspecified site; R94.5 Abnormal results of liver function studies; E87.6 Hypokalemia; D64.9 Anemia, unspecified; E78.5 Hyperlipidemia, unspecified; I48.91 Unspecified atrial fibrillation; K21.9 Gastro-esophageal reflux disease without esophagitis; M81.0 Age-related osteoporosis without current pathological fracture; R54 Age-related physical debility; F01.50 Vascular dementia, unspecified severity, without behavioral disturbance, psychotic disturbance, mood disturbance, and anxiety; F33.0 Major depressive disorder, recurrent, mild; F41.9 Anxiety disorder, unspecified

== ENCOUNTER → 2020-01-04 | Outpatient (CLI) | payer OTHER | LOC: HYPER 15:08 | PROVIDERS: ATTEND Emergency Medicine | DX: E11.622 Type 2 diabetes mellitus with other skin ulcer (principal); L89.314 Pressure ulcer of right buttock, stage 4; L98.416 Non-pressure chronic ulcer of buttock with bone involvement without evidence of necrosis; E11.43 Type 2 diabetes mellitus with diabetic autonomic (poly)neuropathy; R41.82 Altered mental status, unspecified; R26.2 Difficulty in walking, not elsewhere classified; R54 Age-related physical debility; M81.0 Age-related osteoporosis without current pathological fracture; I48.91 Unspecified atrial fibrillation; M47.14 Other spondylosis with myelopathy, thoracic region; K21.9 Gastro-esophageal reflux disease without esophagitis; R94.5 Abnormal results of liver function studies; E78.5 Hyperlipidemia, unspecified; D64.9 Anemia, unspecified; E87.6 Hypokalemia; I10 Essential (primary) hypertension; F41.9 Anxiety disorder, unspecified; F33.0 Major depressive disorder, recurrent, mild; F01.50 Vascular dementia, unspecified severity, without behavioral disturbance, psychotic disturbance, mood disturbance, and anxiety; M19.90 Unspecified osteoarthritis, unspecified site ==

== ENCOUNTER → 2020-01-18 | Outpatient (CLI) | payer OTHER | LOC: HYPER 12:36 | PROVIDERS: ATTEND Emergency Medicine | DX: E11.622 Type 2 diabetes mellitus with other skin ulcer (principal); L89.153 Pressure ulcer of sacral region, stage 3; L98.491 Non-pressure chronic ulcer of skin of other sites limited to breakdown of skin; L89.314 Pressure ulcer of right buttock, stage 4; L98.416 Non-pressure chronic ulcer of buttock with bone involvement without evidence of necrosis; D64.9 Anemia, unspecified; E11.40 Type 2 diabetes mellitus with diabetic neuropathy, unspecified; E87.6 Hypokalemia; E78.5 Hyperlipidemia, unspecified; E66.01 Morbid (severe) obesity due to excess calories; G90.09 Other idiopathic peripheral autonomic neuropathy; I48.91 Unspecified atrial fibrillation; I10 Essential (primary) hypertension; K21.9 Gastro-esophageal reflux disease without esophagitis; R41.82 Altered mental status, unspecified; R94.5 Abnormal results of liver function studies; R26.2 Difficulty in walking, not elsewhere classified; M19.90 Unspecified osteoarthritis, unspecified site; M81.0 Age-related osteoporosis without current pathological fracture; M47.14 Other spondylosis with myelopathy, thoracic region; M62.81 Muscle weakness (generalized); F03.90 Unspecified dementia, unspecified severity, without behavioral disturbance, psychotic disturbance, mood disturbance, and anxiety; F33.0 Major depressive disorder, recurrent, mild; F41.9 Anxiety disorder, unspecified; F01.50 Vascular dementia, unspecified severity, without behavioral disturbance, psychotic disturbance, mood disturbance, and anxiety; Z68.39 Body mass index [BMI] 39.0-39.9, adult ==

== ENCOUNTER → 2020-02-04 | Outpatient (CLI) | payer OTHER | LOC: HYPER 09:46 | PROVIDERS: ATTEND Emergency Medicine | DX: E11.622 Type 2 diabetes mellitus with other skin ulcer (principal); L89.314 Pressure ulcer of right buttock, stage 4; L98.411 Non-pressure chronic ulcer of buttock limited to breakdown of skin; L89.153 Pressure ulcer of sacral region, stage 3; L98.491 Non-pressure chronic ulcer of skin of other sites limited to breakdown of skin; D64.9 Anemia, unspecified; E11.40 Type 2 diabetes mellitus with diabetic neuropathy, unspecified; E87.6 Hypokalemia; E66.01 Morbid (severe) obesity due to excess calories; E78.5 Hyperlipidemia, unspecified; G90.09 Other idiopathic peripheral autonomic neuropathy; R41.82 Altered mental status, unspecified; R94.5 Abnormal results of liver function studies; R26.2 Difficulty in walking, not elsewhere classified; I10 Essential (primary) hypertension; I48.91 Unspecified atrial fibrillation; K21.9 Gastro-esophageal reflux disease without esophagitis; M47.14 Other spondylosis with myelopathy, thoracic region; M81.0 Age-related osteoporosis without current pathological fracture; M19.90 Unspecified osteoarthritis, unspecified site; F01.50 Vascular dementia, unspecified severity, without behavioral disturbance, psychotic disturbance, mood disturbance, and anxiety; F33.0 Major depressive disorder, recurrent, mild; F41.9 Anxiety disorder, unspecified; F03.90 Unspecified dementia, unspecified severity, without behavioral disturbance, psychotic disturbance, mood disturbance, and anxiety; Z68.39 Body mass index [BMI] 39.0-39.9, adult ==